=== PATIENT | male | born 1990 | race African-American/Black ===

== ENCOUNTER 2020-09-21 20:12 | Emergency (ER) | payer OTHER, SELFPAY ==
[2020-09-21 20:37] VITALS: BP 162/83; PULSE 82; RESP 18; TEMP 37.2; O2SAT 98; BMI 27.1
[2020-09-21 21:04] LABS: Strep A Nucleic Acid Negative (Negative)
--- NOTE | 2020-09-21 21:29 | ED.URI ---
HPI - URI/Sore Throat General Chief Complaint: Upper Respiratory Symptoms Stated Complaint: Sore throat Time Seen by Provider: 09/21/20 21:26 Source: patient Mode of arrival: ambulatory History of Present Illness HPI Narrative: 30-year-old male with presentation for itchy left ear and sore throat for 2 days without associated fever, chills, GI or symptoms and denies any cough. No COVID-19 vaccine. Patient states that he has a dog and is allergic to dogs. Related Data Allergies Allergy/AdvReac Type Severity Reaction Status Date / Time No Known Allergies Allergy Verified 09/21/20 20:40 Review of Systems Review of Systems: Pertinent positives and negatives as stated in HPI 10 point review of systems is otherwise negative. [facility] Past Medical History Source: nursing notes reviewed Medical History Patient denies medical problems Social History Social History Advance Directives: No Advance Directives Information Provided: No Physical Exam Vital Signs: Vital Signs: Last Vital Signs Temp 98.9 F 09/21/20 20:37 Pulse 82 09/21/20 20:37 Resp 18 09/21/20 20:37 BP 162/83 H 09/21/20 20:37 Pulse Ox 98 09/21/20 20:37 Body Mass Index 27.1 VITAL SIGNS: Reviewed. GENERAL: Well developed, well nourished, in no acute distress. HEAD: Normocephalic/atraumatic EYES: PERRLA, EOMI EARS: Ext canals without abnormality, TMs non-bulging and non-erythematous NOSE: Nares patent bilateral OROPHARYNX: no oral lesions noted, posterior pharynx clear and non-erythematous without noted tonsillar enlargement/erythema/exudates NECK: Supple, no adenopathy LUNGS: Normal breath sounds. No adventitious sounds or accessory muscle use. SpO2<98> CARDIOVASCULAR: Regular rate and rhythm without noted murmurs ABDOMEN: Soft, non-tender, non-distended with bowel sounds. SKIN: Inspection of the skin reveals no rashes NEUROLOGIC: Alert and oriented x 4. Course Course Course Narrative: 30-year-old male with history and clinical presentation most consistent with allergy symptoms but will swab for pharyngitis and COVID. Review of all investigations negative for acute findings. Patient discharged in stable condition. MDM - URI/Sore Throat Lab Data Labs: Lab Results 09/21/20 09/21/20 Range/Units 20:44 20:46 Coronavirus (PCR) NEGATIVE (Negative) Influenza Type A (PCR) NEGATIVE (Negative) Influenza Type B (PCR) NEGATIVE (Negative) RSV RNA Qual (PCR) NEGATIVE (Negative) S. pyogenes GrpA RODERICK Negative (Negative) Discharge Plan Discharge Clinical Impression: Allergies Patient Disposition: Home, Self-Care Instructions: Allergies (ED) Additional Instructions: Please follow-up with your primary care provider in the next 2-3 days for re-evaluation and further outpatient management. Recommend repeat COVID-19 testing in 3-4 days. Return to the ER for acute worsening of your symptoms. Referrals: Physician,Unknown [Primary Care Provider] - 2 days
[2020-09-21 21:37] LABS: Influenza A PCR NEGATIVE (Negative); Influenza B PCR NEGATIVE (Negative); Resp Syncy Virus RNA Qual PCR NEGATIVE (Negative); SARS COV2 PCR INHOUSE NEGATIVE (Negative)
== END 2020-09-21 22:35 | disposition home or self-care (01) ==
PROVIDERS: Emergency Provider Student in an Organized Health Care Education/Training Program
DX: T78.40XA Allergy, unspecified, initial encounter (principal); X58.XXXA Exposure to other specified factors, initial encounter; J02.9 Acute pharyngitis, unspecified; Z20.822 Contact with and (suspected) exposure to COVID-19
CPT/HCPCS: 0241U; 36415; 87651; 99282

== ENCOUNTER 2020-09-27 21:19 | Emergency (ER) | payer OTHER, SELFPAY ==
--- NOTE | ~2020-09-27 | XR_ITS ---
EXAMINATION: XR ABDOMEN KUB CLINICAL INDICATION: Abdominal pain. COMPARISON: None TECHNIQUE: AP view of the abdomen. FINDINGS: Significant fecal residual is noted throughout the entire large bowel, consistent with clinically suspected constipation. No evidence of any abnormal bowel distention. No abnormal soft tissue mass or calcification. Visualized lung bases are clear. XR/XR KUB IMPRESSION: Significant fecal residual throughout the entire large bowel, consistent with clinically suspected constipation. No superimposed bowel distention.
[2020-09-27 21:52] VITALS: BP 147/84; PULSE 63; RESP 16; TEMP 36.7; O2SAT 97; BMI 26.7
[2020-09-28 01:15] VITALS: BP 154/87; PULSE 67; RESP 16; TEMP 36.6; O2SAT 98
--- NOTE | 2020-09-28 01:27 | ED.ABDPAIN ---
HPI - Abdominal Pain General Chief Complaint: Abdominal Pain Stated Complaint: bloated Time Seen by Provider: 09/28/20 01:24 Source: patient Mode of arrival: ambulatory Limitations: no limitations History of Present Illness HPI narrative: Patient comes emergency room complaining of constipation. Patient states that the last time he moved his bowels was approximately 1 week ago. Patient taking in the musical and magnesium citrate at home. Patient complaining of bloating, no vomiting or diarrhea, patient able to pass gas. Patient states that he has been diagnosed with IBS in the past, consists mostly of constipation. Patient states that when he does not have bowel movements he becomes more anxious, which worsens his constipation. Related Data Previous Rx's Medication Instructions Recorded polyethylene glycol 3350 17 gram 17 g PO BID #30 ea 09/28/20 oral powder packet (Miralax) Allergies Allergy/AdvReac Type Severity Reaction Status Date / Time No Known Allergies Allergy Verified 09/21/20 20:40 Review of Systems Review of Systems Constitutional : No Weight loss, No Fever, No Chills, No Night Sweats, No Fatigue, No Malaise ENT/Mouth : No Hearing loss, No Ear Pain, No Nasal Congestion, No Sinus Pain, No Hoarseness, No sore throat, No Rhinorrhea, No Swallowing Difficulty Eyes: No Eye Pain, No Swelling, No Redness, No Foreign Body, No Discharge, No Vision Changes Cardiovascular : No Chest Pain, No SOB, No Dyspnea on Exertion, No Orthopnea, No Edema, No Palpitations Respiratory : No Cough, No Sputum, No Wheezing, No Smoke Exposure, No Dyspnea Gastrointestinal : No Nausea, No Vomiting, No Diarrhea, complaining of constipation, bloating Genitourinary : no irregular bleeding, No Dysuria, No Urinary Frequency, No Hematuria, No Urinary Incontinence, No Urgency, No Flank Pain, No Urinary Flow Changes, No Hesitancy Musculoskeletal : No joint pain, No Myalgias, No Joint Swelling Skin : No Skin Lesions, No rash Neuro : No Weakness, No Numbness, No Paresthesias, No Loss of Consciousness, No Dizziness, No Headache Psych : No Anxiety/Panic, No Depression, No SI/HI/AH/VH, No Social Issues, Heme/Lymph: No Bruising, No Bleeding,No Lymphadenopathy Endocrine : No Polyuria, No Polydipsia, No Temperature Intolerance Physical Exam Vital Signs: Vital Signs: Last Vital Signs Temp 97.8 F 09/28/20 01:15 Pulse 67 09/28/20 01:15 Resp 16 09/28/20 01:15 BP 154/87 H 09/28/20 01:15 Pulse Ox 98 09/28/20 01:15 Body Mass Index 26.7 Const: Other: Appearance: Alert. Oriented X3. No acute distress. Eyes: Pupils equal, round and reactive to light. ENT: Pharynx normal. Neck: Normal inspection. Neck supple. No lymph nodes noted. No crepitus CVS: Normal heart rate and rhythm. Pulses normal. Normal S1 and S2 Respiratory: No respiratory distress. Breath sounds normal. No Wheezing. No rales Abdomen: Soft and nontender. No rigidity. Mild distention. Skin: Skin warm and dry. Normal skin color. Normal skin turgor. Extremities: No lower extremity edema. No lower extremity edema. No Lacerations. No Rash Neuro: Oriented X 3. No motor deficit. No sensory deficit. Moving all extermities. No slurred speech. 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 Patient will also try MiraLax twice a day and drink plenty fluids. According to patient, he has not tried MiraLax yet. MDM - Abdominal Pain Lab Data Result diagrams: 09/28/20 01:25 09/28/20 01:25 Labs: Lab Results 09/28/20 09/28/20 Range/Units 01:25 01:25 WBC 8.7 (4.8-10.8) X10*3/uL RBC 5.40 (4.60-5.80) X10*6/uL Hgb 15.7 (14.0-18.0) g/dl Hct 43.8 (42-52) % MCV 81.1 (80-98) fL MCH 29.1 (27.0-33.0) pg MCHC 35.8 (31.0-36.0) g/dl RDW 13.0 (11.0-16.0) % Plt Count 266 (160-400) X10*3/uL MPV 9.5 (9.4-12.4) fL Immature Gran % (Auto) 0.2 (0.0-0.4) % Neut % (Auto) 44.2 L (45-73) % Lymph % (Auto) 42.8 H (20-40) % [place] % (Auto) 10.4 (2-11) % Eos % (Auto) 2.1 (0-4) % Baso % (Auto) 0.3 (0-2) % Lymph # (Auto) 3.7 (1.2-4.9) X10*3/uL [place] # (Auto) 0.9 (0.1-1.2) X10*3/uL Eos # (Auto) 0.2 (0.0-0.4) X10*3/uL Baso # (Auto) 0.0 (0.0-0.2) X10*3/uL Abs Immat Gran (auto) 0.02 (0.00-0.03) X10*3/uL Absolute Neuts (auto) 3.8 (2.0-8.3) X10*3/uL Absolute Nucleated RBC 0.000 (0.0-0.012) X10*3/uL Nucleated RBC % (auto) 0.0 (0.0-0.2) /100WBC Sodium 137 (135-145) mmol/L Potassium 4.3 (3.3-5.1) mmol/L Chloride 102 (96-108) mmol/L Carbon Dioxide 26 (22-29) mmol/L Anion Gap 13 (12-20) BUN 19 H (9-16) mg/dL Creatinine 1.31 (0.5-1.4) mg/dL Estim Creat Clear Calc 89.6 Estimated GFR > 60 Random Glucose 89 (60-115) mg/dL Calcium 9.7 (8.4-10.2) mg/dL Total Bilirubin 0.5 (0.0-1.0) mg/dL AST 25 (5-37) U/L ALT 33 (0-40) U/L Alkaline Phosphatase 62 (39-117) U/L Total Protein 7.7 (6.5-8.0) g/dL Albumin 4.4 (3.5-5.0) g/dL Imaging Data KUB: Radiologist's impression: Significant fecal residual is noted throughout the entire large bowel, consistent with clinically suspected constipation. No evidence of any abnormal bowel distention. No abnormal soft tissue mass or calcification. Visualized lung bases are clear. XR/XR KUB IMPRESSION: Significant fecal residual throughout the entire large bowel, consistent with clinically suspected constipation. No superimposed bowel distention. ? Discharge Plan Discharge Clinical Impression: Constipation Qualifiers: Constipation type: other constipation type Qualified Code(s): K59.09 - Other constipation Patient Disposition: Home, Self-Care Instructions: Constipation (ED) Additional Instructions: Please discuss with your primary care physician and Gastroenterology about the possibility of starting Linzess. Please follow-up with your primary care physician tomorrow. If you have any worsening or new symptoms, please return to the emergency room or call 911 Prescriptions: New polyethylene glycol 3350 [Miralax] 17 gram powder in packet 17 g PO BID Qty: 30 RF: 0 PMFSH Past Medical History Medical History IBS (irritable bowel syndrome) Social History Social History Advance Directives: No Advance Directives Information Provided: No
[2020-09-28 01:30] LABS: MANUAL DIFF FLAG NO
[2020-09-28 01:31] LABS: Basophils Percent Auto 0.3 % (0-2); Eosinophils Absolute Auto 0.2 X10*3/uL (0.0-0.4); Eosinophils Percent Auto 2.1 % (0-4); Hematocrit 43.8 % (42-52); Hemoglobin 15.7 g/dl (14.0-18.0); Imm Gran Abs Auto 0.02 X10*3/uL (0.00-0.03); Imm Gran Pct Auto 0.2 % (0.0-0.4); Lymphocytes Absolute Auto 3.7 X10*3/uL (1.2-4.9); Lymphocytes Percent Auto 42.8 % (20-40); Mean Corpuscular HGB Conc 35.8 g/dl (31.0-36.0); Mean Corpuscular Hemoglobin 29.1 pg (27.0-33.0); Mean Corpuscular Volume 81.1 fL (80-98); Mean Platelet Volume 9.5 fL (9.4-12.4); Monocytes Absolute Auto 0.9 X10*3/uL (0.1-1.2); Monocytes Percent Auto 10.4 % (2-11); Neutrophils Absolute Auto 3.8 X10*3/uL (2.0-8.3); Neutrophils Percent Auto 44.2 % (45-73); Platelet Count 266 X10*3/uL (160-400); White Blood Count 8.7 X10*3/uL (4.8-10.8)
[2020-09-28 02:01] LABS: Alanine Aminotransferase 33 U/L (0-40); Albumin Level 4.4 g/dL (3.5-5.0); Alkaline Phosphatase 62 U/L (39-117); Anion Gap 13 (12-20); Aspartate Amino Transferase 25 U/L (5-37); Bilirubin Total 0.5 mg/dL (0.0-1.0); Blood Urea Nitrogen 19 mg/dL (9-16); Calcium 9.7 mg/dL (8.4-10.2); Carbon Dioxide 26 mmol/L (22-29); Chloride 102 mmol/L (96-108); Creatinine Clr Calc Pharmacy 89.6; Estimated Glomerular Filt Rate > 60; Glucose Random 89 mg/dL (60-115); Potassium 4.3 mmol/L (3.3-5.1); Sodium 137 mmol/L (135-145); Total Protein 7.7 g/dL (6.5-8.0)
== END 2020-09-28 02:23 | disposition home or self-care (01) ==
PROVIDERS: Emergency Provider Emergency Medicine; PCP Urology
DX: K59.09 Other constipation (principal); R10.9 Unspecified abdominal pain; Z79.899 Other long term (current) drug therapy
CPT/HCPCS: 36415; 74018; 80053; 85025; 99284

== ENCOUNTER 2020-11-02 10:37 | Emergency (ER) | payer OTHER, SELFPAY ==
--- NOTE | ~2020-11-02 | US_ITS ---
EXAMINATION: US SCROTUM CLINICAL INFORMATION: Testicular discomfort. COMPARISON: None TECHNIQUE: A sonogram of the scrotum was performed assessing schmitz-scale appearance and color Doppler flow. Spectral Doppler analysis of the arterial and venous flow were performed in the testes bilaterally. FINDINGS: RIGHT: Right testicle measures 5.2 x 2.3 x 2.7 cm, volume 17 mL. No focal testicular parenchymal lesions are visualized. Spectral Doppler analysis of the arterial and venous flow is normal in the right testis. Right epididymal head is normal in size. There is a 2 mm right epididymal head cyst. No right hydrocele or varicocele is seen. Right epididymal Doppler flow is normal. LEFT: Left testicle measures 5 x 2.7 x 2.8 cm, volume 20 mL. No focal testicular parenchymal lesions are visualized. Spectral Doppler analysis of the arterial and venous flow is normal in the left testis. Left epididymal head is normal in size. No left hydrocele or varicocele is seen. Left epididymal Doppler flow is normal. US/US scrotum doppler IMPRESSION: Small right epididymal head cyst otherwise unremarkable exam.
--- NOTE | ~2020-11-02 | US_ITS ---
EXAMINATION: US SCROTUM CLINICAL INFORMATION: Testicular discomfort. COMPARISON: None TECHNIQUE: A sonogram of the scrotum was performed assessing schmitz-scale appearance and color Doppler flow. Spectral Doppler analysis of the arterial and venous flow were performed in the testes bilaterally. FINDINGS: RIGHT: Right testicle measures 5.2 x 2.3 x 2.7 cm, volume 17 mL. No focal testicular parenchymal lesions are visualized. Spectral Doppler analysis of the arterial and venous flow is normal in the right testis. Right epididymal head is normal in size. There is a 2 mm right epididymal head cyst. No right hydrocele or varicocele is seen. Right epididymal Doppler flow is normal. LEFT: Left testicle measures 5 x 2.7 x 2.8 cm, volume 20 mL. No focal testicular parenchymal lesions are visualized. Spectral Doppler analysis of the arterial and venous flow is normal in the left testis. Left epididymal head is normal in size. No left hydrocele or varicocele is seen. Left epididymal Doppler flow is normal. US/US scrotum IMPRESSION: Small right epididymal head cyst otherwise unremarkable exam.
[2020-11-02 11:35] VITALS: BP 145/84; PULSE 60; RESP 20; TEMP 36; O2SAT 99; BMI 27.1
--- NOTE | 2020-11-02 12:05 | ED_ITS ---
HPI - General Adult General Chief complaint: General Medical Stated complaint: lower abd pain Time Seen by Provider: 11/02/20 12:26 Source: patient Mode of arrival: ambulatory Limitations: no limitations History of Present Illness HPI narrative: Patient presents to ED cloudy urine for about 2 weeks. Patient states this Monday he came back negative for urinary tract infection and negative for STI. Patient states this morning he woke and thought he saw of green yellow liquid from penis. Patient states he has not had sex in the past 2 weeks. Patient denies any history of STIs. Patient states some mild testicular discomfort. Related Data Previous Rx's Medication Instructions Recorded polyethylene glycol 3350 17 gram 17 g PO BID #30 ea 09/28/20 oral powder packet (Miralax) Allergies Allergy/AdvReac Type Severity Reaction Status Date / Time No Known Allergies Allergy Verified 09/21/20 20:40 Review of Systems Review of Systems: Yes all other systems are reviewed and are negative Constitutional: Constitutional: Reports as per HPI and Reports no additional constitutional complaints Eyes: Eyes: Reports as per HPI and Reports no additional eye complaints ENT: Reports system reviewed and no additional complaints, except as documented and Reports as per HPI Cardiovascular: Cardiovascular: Reports as per HPI and Reports no additional cardiovascular complaints Respiratory: Respiratory: Reports as per HPI and Reports no additional respiratory complaints Gastrointestinal: Gastrointestinal: Reports as per HPI and Reports no additional gastrointestinal complaints Genitourinary: Genitourinary: Reports no additional male genitourinary complaints, Reports as per HPI and Reports testicular pain Comments: Cloudy urine Musculoskeletal: Musculoskeletal: Reports no additional musculoskeletal complaints and Reports as per HPI Neurologic: Reports system reviewed and no additional complaints, except as documented and Reports as per HPI Psychiatric: Psychiatric: Reports no additional psychiatric complaints and Reports as per HPI [facility] Past Medical History Medical History IBS (irritable bowel syndrome) Social History Social History Advance Directives: No Advance Directives Information Provided: No Physical Exam 2 Vital Signs: Vital Signs: Last Vital Signs Temp 98.1 F 11/02/20 13:20 Pulse 55 11/02/20 13:20 Resp 18 11/02/20 13:20 BP 132/69 11/02/20 13:20 Pulse Ox 98 11/02/20 13:20 Body Mass Index 27.1 Const: General: cooperative, healthy appearing, comfortable, no acute distress, well developed, alert and awake Orientation/consciousness: patient oriented x3 HENMT: Head: Yes normal to inspection, Yes No palpable skull fracture present, Yes normocephalic and Yes atraumatic Eyes: General: appearance normal, both eyes and all related structures Neck: Neck: Yes normal visual inspection, Yes full ROM, Yes no lymphadenopathy, Yes no meningeal signs, Yes trachea midline, Yes supple and No tender Chest: Chest palpation & inspection: normal inspection of the chest and normal palpation of entire chest wall Resp: Effort & Inspection: normal respiratory effort and able to speak in complete sentences Auscultation: clear to auscultation bilaterally Cardio: Jugular venous distension: no JVD Heart sounds: S1 normal heart sound present and S2 normal heart sound present GI: Inspection: Yes normal to inspection and No abdominal wall ecchymosis Palpation (GI): Soft to palpation, not firm, nontender, no guarding and not rigid : General: No CVA tenderness and Yes no CVA tenderness Male General Exam: No Genital lesions present Penis: normal penis, circumcised, no condylomata, no ecchymosis, not edematous, not erythematous, no masses, no nodules, no papules, no pustules, no vesicles, no swelling, no ulcerations and No Genital lesions present Meatus: meatus normal, no meatla discharge and No Blood at meatus present Scrotum: scrotum normal, no ecchymosis, not edematous, not erythematous, testes descended bilaterally, no hydroceles, no inguinal hernias, no masses and no scrotal swelling Testes: testicular tenderness (mild) Back/Spine/Pelvis: Back: no CVA tenderness, No CVA tenderness and No back tenderness Skin: General skin exam: no rashes or lesions noted and elasticity normal Neuro: General: patient oriented x3, gait normal, no meningeal signs and CN's II-XI intact bilaterally Cranial nerves: Yes CN's II-XII intact bilaterally Extrem: General: Yes normal to inspection and Yes full ROM Psych: Appearance: grossly normal, well kempt and not disheveled Course Course Course Narrative: UA and GC ordered. Patient of basic labs drawn and sent for testicle ultrasound. Reevaluation(s) Reevaluation #1: UA negative for any blood or any signs of infection. Testicular ultrasound negative for torsion or epididymitis. Testicular ultrasound shows epididymal cyst which patient states he is aware of. Patient kidney function is normal. Negative for signs of dehydration. CBC normal. no Indication for abdominal CT scan. Patient does not have any abdominal pain or flank pain. Patient came to the ED for cloudy urine and green discharge. Chlamydia gonorrhea is pending. Patient does not want empiric treatment. Patient states he was recently tested for STDs on Monday and they were negative. Patient will follow-up with primary care provider. Time: 15:06 Medical Decision Making MDM Narrative Medical decision making narrative: Cloudy urine. Testicular pain Lab Data Result diagrams: 11/02/20 13:06 11/02/20 13:06 Labs: Lab Results 11/02/20 11/02/20 11/02/20 Range/Units 13:06 13:06 13:06 WBC 4.5 L (4.8-10.8) X10*3/uL RBC 5.49 (4.60-5.80) X10*6/uL Hgb 16.0 (14.0-18.0) g/dl Hct 44.8 (42-52) % MCV 81.6 (80-98) fL MCH 29.1 (27.0-33.0) pg MCHC 35.7 (31.0-36.0) g/dl RDW 12.9 (11.0-16.0) % Plt Count 267 (160-400) X10*3/uL MPV 9.5 (9.4-12.4) fL Immature Gran % (Auto) 0.2 (0.0-0.4) % Neut % (Auto) 34.8 L (45-73) % Lymph % (Auto) 51.8 H (20-40) % [place] % (Auto) 10.3 (2-11) % Eos % (Auto) 2.5 (0-4) % Baso % (Auto) 0.4 (0-2) % Lymph # (Auto) 2.3 (1.2-4.9) X10*3/uL [place] # (Auto) 0.5 (0.1-1.2) X10*3/uL Eos # (Auto) 0.1 (0.0-0.4) X10*3/uL Baso # (Auto) 0.0 (0.0-0.2) X10*3/uL Abs Immat Gran (auto) 0.01 (0.00-0.03) X10*3/uL Absolute Neuts (auto) 1.6 L (2.0-8.3) X10*3/uL Absolute Nucleated RBC 0.000 (0.0-0.012) X10*3/uL Nucleated RBC % (auto) 0.0 (0.0-0.2) /100WBC Sodium (135-145) mmol/L Potassium (3.3-5.1) mmol/L Chloride (96-108) mmol/L Carbon Dioxide (22-29) mmol/L Anion Gap (12-20) BUN (9-16) mg/dL Creatinine (0.5-1.4) mg/dL Estim Creat Clear Calc Estimated GFR Random Glucose (60-115) mg/dL Calcium (8.4-10.2) mg/dL Urine Color STRAW Urine Appearance CLEAR Urine pH 5.5 (5.0-8.0) Ur Specific [place] <= 1.005 (1.005-1.025) Urine Protein NEG (NEG-TRACE) MG/DL Urine Glucose (UA) NEG (NEG) MG/DL Urine Ketones NEG (NEG) MG/DL Urine Blood NEG (NEG) Urine Nitrite NEG (NEG) Ur Leukocyte Esterase NEG (NEG) Urine RBC 0 (0) /HPF Urine WBC 0-2 (0-4) /HPF Ur Squamous Epith Cells TRACE /LPF Urine Bacteria NONE /LPF Chlam trachomat DNA PCR NOT DETECTED (Not Detect.) N.gonorrhoeae DNA (PCR) NOT DETECTED (Not Detect.) 11/02/20 Range/Units 13:06 WBC (4.8-10.8) X10*3/uL RBC (4.60-5.80) X10*6/uL Hgb (14.0-18.0) g/dl Hct (42-52) % MCV (80-98) fL MCH (27.0-33.0) pg MCHC (31.0-36.0) g/dl RDW (11.0-16.0) % Plt Count (160-400) X10*3/uL MPV (9.4-12.4) fL Immature Gran % (Auto) (0.0-0.4) % Neut % (Auto) (45-73) % Lymph % (Auto) (20-40) % [place] % (Auto) (2-11) % Eos % (Auto) (0-4) % Baso % (Auto) (0-2) % Lymph # (Auto) (1.2-4.9) X10*3/uL [place] # (Auto) (0.1-1.2) X10*3/uL Eos # (Auto) (0.0-0.4) X10*3/uL Baso # (Auto) (0.0-0.2) X10*3/uL Abs Immat Gran (auto) (0.00-0.03) X10*3/uL Absolute Neuts (auto) (2.0-8.3) X10*3/uL Absolute Nucleated RBC (0.0-0.012) X10*3/uL Nucleated RBC % (auto) (0.0-0.2) /100WBC Sodium 135 (135-145) mmol/L Potassium 5.1 (3.3-5.1) mmol/L Chloride 103 (96-108) mmol/L Carbon Dioxide 23 (22-29) mmol/L Anion Gap 14 (12-20) BUN 9 D (9-16) mg/dL Creatinine 1.23 (0.5-1.4) mg/dL Estim Creat Clear Calc 95.5 Estimated GFR > 60 Random Glucose 87 (60-115) mg/dL Calcium 9.8 (8.4-10.2) mg/dL Urine Color Urine Appearance Urine pH (5.0-8.0) Ur Specific [place] (1.005-1.025) Urine Protein (NEG-TRACE) MG/DL Urine Glucose (UA) (NEG) MG/DL Urine Ketones (NEG) MG/DL Urine Blood (NEG) Urine Nitrite (NEG) Ur Leukocyte Esterase (NEG) Urine RBC (0) /HPF Urine WBC (0-4) /HPF Ur Squamous Epith Cells /LPF Urine Bacteria /LPF Chlam trachomat DNA PCR (Not Detect.) N.gonorrhoeae DNA (PCR) (Not Detect.) Discharge Plan Discharge Clinical Impression: Pain in testicle Patient Disposition: Home, Self-Care Instructions: Testicle Pain (ED) Additional Instructions: Your urine came back negative for infection. Your blood work came back normal. Ultrasound of testicles came back negative for any testicular torsion, variceal, hydrocele, or epididymitis. Please follow-up with primary care provider. Return to ED for any abdominal pain, nausea, vomiting, swelling of testicles, penile lesions, flank pain, or any other concerning symptoms. Prescriptions: No Action polyethylene glycol 3350 [Miralax] 17 gram powder in packet 17 g PO BID Qty: 30 RF: 0 Referrals: Edmond Plummer MD [Primary Care Provider] - 2 days (Testicular pain. cloudy urine) Discharge Date/Time: 11/02/20 15:17 Print Language: Estonian
--- NOTE | 2020-11-02 12:54 | PC.NURSE ---
patient arrives to ED with c/o testicular pain. A+ox4. Resting safely.
[2020-11-02 13:14] LABS: MANUAL DIFF FLAG NO
[2020-11-02 13:18] LABS: Appearance Urine CLEAR; Basophils Percent Auto 0.4 % (0-2); Color Urine STRAW; Eosinophils Absolute Auto 0.1 X10*3/uL (0.0-0.4); Eosinophils Percent Auto 2.5 % (0-4); Glucose Urine UA NEG (NEG); Hematocrit 44.8 % (42-52); Imm Gran Abs Auto 0.01 X10*3/uL (0.00-0.03); Imm Gran Pct Auto 0.2 % (0.0-0.4); Leukocyte Esterase Urine NEG (NEG); Lymphocytes Absolute Auto 2.3 X10*3/uL (1.2-4.9); Lymphocytes Percent Auto 51.8 % (20-40); Mean Corpuscular HGB Conc 35.7 g/dl (31.0-36.0); Mean Corpuscular Hemoglobin 29.1 pg (27.0-33.0); Mean Corpuscular Volume 81.6 fL (80-98); Mean Platelet Volume 9.5 fL (9.4-12.4); Monocytes Absolute Auto 0.5 X10*3/uL (0.1-1.2); Monocytes Percent Auto 10.3 % (2-11); Neutrophils Absolute Auto 1.6 X10*3/uL (2.0-8.3); Neutrophils Percent Auto 34.8 % (45-73); Nitrite Urine NEG (NEG); PH 5.5 (5.0-8.0); Platelet Count 267 X10*3/uL (160-400); Red Blood Count 5.49 X10*6/uL (4.60-5.80); Red Cell Distribution Width 12.9 % (11.0-16.0); Specific Gravity - Urine <= 1.005 (1.005-1.025); Urine Blood NEG (NEG); Urine Ketones NEG (NEG); Urine Protein NEG (NEG-TRACE); White Blood Count 4.5 X10*3/uL (4.8-10.8)
[2020-11-02 13:20] VITALS: BP 132/69; PULSE 55; RESP 18; TEMP 36.7; O2SAT 98
[2020-11-02 13:37] LABS: Anion Gap 14 (12-20); Blood Urea Nitrogen 9 mg/dL (9-16); Calcium 9.8 mg/dL (8.4-10.2); Carbon Dioxide 23 mmol/L (22-29); Chloride 103 mmol/L (96-108); Creatinine Clr Calc Pharmacy 95.5; Estimated Glomerular Filt Rate > 60; Glucose Random 87 mg/dL (60-115); Potassium 5.1 mmol/L (3.3-5.1); Sodium 135 mmol/L (135-145)
[2020-11-02 14:27] LABS: RBC Urine 0 /HPF (0); Squamous Epithelial Cell Urine TRACE /LPF; WBC Urine 0-2 /HPF (0-4)
[2020-11-02 14:58] LABS: CT PCR NOT DETECTED (Not Detect.); NG PCR NOT DETECTED (Not Detect.)
== END 2020-11-02 15:17 | disposition home or self-care (01) ==
PROVIDERS: Physician Assistant; Emergency Provider Emergency Medicine; PCP Urology
DX: N50.812 Left testicular pain (principal); N50.811 Right testicular pain; R10.30 Lower abdominal pain, unspecified; Z79.899 Other long term (current) drug therapy
CPT/HCPCS: 36415; 76870; 80048; 81001; 85025; 87491; 87591; 93975; 99283; 99284

== ENCOUNTER 2020-11-21 08:40 | Emergency (ER) | payer OTHER, SELFPAY ==
[2020-11-21 08:59] VITALS: BP 140/79; PULSE 77; RESP 18; TEMP 36.7; O2SAT 98; BMI 26.8
[2020-11-21 09:41] LABS: COVID-19 Test Negative (Negative)
--- NOTE | 2020-11-21 10:06 | ED.GENADULT ---
HPI - General Adult General Chief complaint: General Medical Stated complaint: CONGESTION Time Seen by Provider: 11/21/20 09:11 Source: patient Mode of arrival: ambulatory History of Present Illness HPI narrative: 30-year-old male with a past medical history of IBS, seasonal allergies, presenting to the ED complaining of worsening congestion and head pressure x weeks. Reports associated ear pressure, dry/scratchy throat and rhinorrhea. Denies fever, chills, cough, SOB, CP, sick contacts, recent travel, known COVID-19 exposure. Has been taking Flonase/Allergy Relief medications without symptomatic improvement Onset (ago): week(s) Related Data Previous Rx's Medication Instructions Recorded polyethylene glycol 3350 17 gram 17 g PO BID #30 ea 09/28/20 oral powder packet (Miralax) azithromycin 250 mg tablet See Rx Instructions .ROUTE 11/21/20 .COMPLEX #6 tab Allergies Allergy/AdvReac Type Severity Reaction Status Date / Time dog dander [dogs] Allergy Runny Nose Verified 11/21/20 09:02 Review of Systems Review of Systems: Constitutional: No Fever, No Chills ENT/Mouth: + Ear Pain, + Nasal Congestion, + Sinus Pain, No Hoarseness, + sore throat, + Rhinorrhea, No Swallowing Difficulty Cardiovascular: No Chest Pain, No SOB Respiratory: No Cough, No Sputum, No Wheezing Gastrointestinal: No Nausea, No Abdominal pain Genitourinary: No Dysuria, No Urinary Frequency Musculoskeletal: No joint pain, No Myalgias, No Joint Swelling Skin: No Skin Lesions, No rash Neuro: No Weakness Yes all other systems are reviewed and are negative [facility] Past Medical History Attestation statement: The following information was validated with the patient. Medical History IBS (irritable bowel syndrome) Social History Social History Advance Directives: Yes Advance Directives Information Provided: No Advance Directives on File: No Physical Exam Vital Signs: Vital Signs: Last Vital Signs Temp 98.1 F 11/21/20 08:59 Pulse 77 11/21/20 08:59 Resp 18 11/21/20 08:59 BP 140/79 H 11/21/20 08:59 Pulse Ox 98 11/21/20 08:59 Body Mass Index 26.8 Const: General: cooperative, healthy appearing, no acute distress, well developed, alert and awake Orientation/consciousness: patient oriented x3 Limitations: no limitations HENMT: Head: Yes normal to inspection and Yes atraumatic Ears: hearing grossly normal bilaterally, external ears normal, mastoids normal and TM abnormal bulging on the left; Negative for not with effusion, not erythematous and with no fluid behind the TM General nose exam: Normal external nose present and Nasal discharge present Face and sinus: Yes normal facial exam and Yes sinus tenderness (Maxillary) Mouth: Normal oral and palatal mucosa present Throat: Yes posterior oropharynx normal, Yes tonsils normal, Yes uvula midline, No peritonsillar mass, No uvula laterally displaced and No uvular edema Eyes: General: appearance normal, both eyes and all related structures EOM: EOMs intact bilaterally Neck: Neck: Yes normal visual inspection, Yes no lymphadenopathy and Yes no meningeal signs Resp: Effort & Inspection: normal respiratory effort Auscultation: clear to auscultation bilaterally, no rales, no rhonchi and no wheezes Cardio: Rate: regular rate Heart sounds: S1 normal heart sound present and S2 normal heart sound present Skin: Rashes: no rashes Wounds: no wounds Neuro: General: patient oriented x3 and no meningeal signs Gait exam (Neuro): Normal gait present Extrem: General: Yes normal to inspection Course Reevaluation(s) Reevaluation #1: COVID-19 negative Time: 10:00 Medical Decision Making [facility] Narrative Medical decision making narrative: 30-year-old male with a past medical history of IBS, seasonal allergies, presenting to the ED complaining of worsening congestion and head pressure x weeks. On exam VS, NAD, concern for sinusitis versus viral syndrome/COVID-19 for lower concern for pneumonia. Plan: COVID-19 testing. Will treat with antibiotics for sinusitis secondary to continued symptoms despite OTC remedies and patient request Lab Data Labs: Lab Results 11/21/20 Range/Units 09:20 COVID-19 (FABIOLA) Negative (Negative) COVID-19 Clin Com See Note Discharge Plan Discharge Clinical Impression: Sinusitis Qualifiers: Sinusitis location: maxillary Chronicity: acute Recurrence: not specified as recurrent Qualified Code(s): J01.00 - Acute maxillary sinusitis, unspecified Patient Disposition: Home, Self-Care Instructions: Sinusitis (ED) Additional Instructions: Continue to use Flonase and allergy relief medications at home In addition azithromycin is an antibiotic for sinusitis Also consider using Neti pot and saline rinses [id number] Take Tylenol Motrin as needed Follow-up with her doctor You tested negative for COVID-19 Prescriptions: New azithromycin 250 mg tablet See Rx Instructions .ROUTE .COMPLEX Qty: 6 RF: 0 No Action polyethylene glycol 3350 [Miralax] 17 gram powder in packet 17 g PO BID Qty: 30 RF: 0
== END 2020-11-21 10:22 | disposition home or self-care (01) ==
PROVIDERS: Physician Assistant; Emergency Provider Emergency Medicine; PCP Urology
DX: J01.00 Acute maxillary sinusitis, unspecified (principal); Z20.822 Contact with and (suspected) exposure to COVID-19
CPT/HCPCS: 36415; 87635; 99283

== ENCOUNTER 2021-01-27 12:06 | Outpatient (REF) | payer OTHER, SELFPAY | END 2021-01-27 12:07 | disposition home or self-care (01) | LOC: HO.LAB 12:06 | PROVIDERS: Visit Provider Internal Medicine | DX: Z13.89 Encounter for screening for other disorder (principal) ==

== ENCOUNTER 2021-02-12 10:28 | Emergency (ER) | payer OTHER, SELFPAY ==
--- NOTE | ~2021-02-12 | XR_ITS ---
EXAMINATION: XR CHEST CLINICAL INFORMATION: Cough. COMPARISON: None TECHNIQUE: 2 views of the chest were obtained. FINDINGS: No significant abnormality is noted involving the heart, lungs, mediastinum, bony thorax or soft tissues. A 0.6 cm low-density nodule projecting over the anterior segment of the right 6th rib somewhat laterally is felt to represent a nipple shadow. XR/XR chest 2V IMPRESSION: No radiographic evidence of pneumonia. No acute pulmonary process.
[2021-02-12 10:56] VITALS: BP 136/90; PULSE 71; RESP 18; TEMP 36.9; O2SAT 99; BMI 26.7
--- NOTE | 2021-02-12 17:21 | ECG_ITS ---
Test Reason : burning in chest Blood Pressure : / mmHG Vent. Rate : 063 BPM Atrial Rate : 063 BPM P-R Int : 140 ms QRS Dur : 072 ms QT Int : 384 ms P-R-T Axes : 000 057 037 degrees QTc Int : 392 ms Normal sinus rhythm Normal ECG No previous ECGs available Referred By: Buzz Coon Electronically Signed By:YOUNG ABRAHAM MD
--- NOTE | 2021-02-12 17:59 | ED_ITS ---
HPI - General Adult General Chief complaint: Upper Respiratory Symptoms <JOSETTE Pina Last Filed: 02/12/21 18:53> Stated complaint: burning sensation in chest +COVID 02/08/21 <JOSETTE Pina Last Filed: 02/12/21 18:53> Time Seen by Provider: 02/12/21 16:11 <JOSETTE Pina Last Filed: 02/12/21 18:53> History of Present Illness HPI narrative: Patient who is COVID positive complains of mild coughing runny nose some body aches and sometimes when he wakes up in the morning he has a burning sensation in his upper abdomen and chest which is not related to exertion, no accompanying shortness of breath no diaphoresis no dizziness no fainting no f eeling faint no nausea or vomiting The pain is similar to prior episodes of GERD <JOSETTE Pina Last Filed: 02/12/21 18:53> Related Data Home medications: Previous Rx's Medication Instructions Recorded polyethylene glycol 3350 17 gram 17 g PO BID #30 ea 09/28/20 oral powder packet (Miralax) azithromycin 250 mg tablet See Rx Instructions .ROUTE 11/21/20 .COMPLEX #6 tab <JOSETTE Pina Last Filed: 02/12/21 18:53> Allergies/adverse reactions: Allergies Allergy/AdvReac Type Severity Reaction Status Date / Time dog dander [dogs] Allergy Runny Nose Verified 02/12/21 10:56 <JOSETTE Pina Last Filed: 02/12/21 18:53> Review of Systems Review of Systems: Positive for runny nose cough and intermittent burning in his chest and upper abdomen some mornings, no pain or burning now Negatives are no fever no chills no dizziness no weakness no fainting no feeling faint no headache no neck pain no radiation of pain no chest pain no diaphoresis no exertional symptoms no other abdominal pain no nausea vomiting or diarrhea no calf pain or swelling no leg swelling <JOSETTE Pina Last Filed: 02/12/21 18:53> Yes all other systems are reviewed and are negative <JOSETTE Pina Last Filed: 02/12/21 18:53> [facility] Past Medical History Source: nursing notes reviewed <JOSETTE Pina Last Filed: 02/12/21 18:53> Medical History: Medical History IBS (irritable bowel syndrome) <JOSETTE Pina - Last Filed: 02/12/21 18:53> Social History Social History: Social History Advance Directives: No Advance Directives Information Provided: No <JOSETTE Pina - Last Filed: 02/12/21 18:53> Physical Exam Vital Signs: Vital Signs: Last Vital Signs Temp 98.4 F 02/12/21 10:56 Pulse 71 02/12/21 10:56 Resp 18 02/12/21 10:56 BP 136/90 H 02/12/21 10:56 Pulse Ox 99 02/12/21 10:56 BMI result Body Mass Index 26.7 <JOSETTE Pina - Last Filed: 02/12/21 18:53> Vital Signs: Last Vital Signs Temp 98.4 F 02/12/21 10:56 Pulse 71 02/12/21 10:56 Resp 18 02/12/21 10:56 BP 136/90 H 02/12/21 10:56 Pulse Ox 99 02/12/21 10:56 BMI result Body Mass Index 26.7 <JOSETTE Cabrales - Last Filed: 02/12/21 20:07> Comfortable ear lacks no acute distress The eyes no redness or discharge The neck is supple The chest is clear to auscultation bilateral Heart no murmur there is no chest wall tenderness there is no pleuritic d iscomfort The abdomen is soft and nontender The heart no murmurs Extremities full range of motion x4 without edema no calf tenderness or swelling <JOSETTE Pina - Last Filed: 02/12/21 18:53> Course Course Course Narrative: EKG was a normal sinus rhythm rate 63, in leads V3 V4 and V5 there was a questionable ST elevation versus early repolarization, there was also borderline high T-waves EKG was repeated and showed the same so as there are no priors for comparison labs including a troponin were ordered for the patient will had 2 episodes of chest burning in the morning on rising over the last 2 days but no other chest pain no shortness of breath Patient is positive for COVID At 19:00 the case was signed out to physician facilities maintenance assistant amber to follow labs and if normal discharge patient with diagnosis of COVID <JOSETTE Pina - Last Filed: 02/12/21 18:53> Reevaluation(s) Reevaluation #1: Troponin negative. Potassium WNL, labs otherwise unremarkable. Results discussed with patient including worrisome signs and symptoms and strict return precautions need to follow-up with PCP. He verbalized understanding feel safe for discharge home at this time <JOSETTE Cabrales - Last Filed: 02/12/21 20:07> Time: 20:05 <JOSETTE Cabrales - Last Filed: 02/12/21 20:07> Medical Decision Making Lab Data Result diagrams: : 02/12/21 19:29 02/12/21 19:29 <JOSETTE Pina - Last Filed: 02/12/21 18:53> Labs: Lab Results 02/12/21 02/12/21 02/12/21 Range/Units 19:29 19:29 19:29 WBC 4.8 (4.8-10.8) X10*3/uL RBC 5.42 (4.60-5.80) X10*6/uL Hgb 15.6 (14.0-18.0) g/dl Hct 43.9 (42.0-52.0) % MCV 81.0 (80.0-98.0) fL MCH 28.8 (27.0-33.0) pg MCHC 35.5 (31.0-36.0) g/dl RDW 13.6 (11.0-16.0) % Plt Count 238 (160-400) X10*3/uL MPV 9.9 (9.4-12.4) fL Immature Gran % (Auto) 0.2 (0.0-0.4) % Neut % (Auto) 42.2 L (45-73) % Lymph % (Auto) 47.7 H (20-40) % Moore % (Auto) 8.5 (2-11) % Eos % (Auto) 1.0 (0-4) % Baso % (Auto) 0.4 (0-2) % Lymph # (Auto) 2.3 (1.2-4.9) X10*3/uL Moore # (Auto) 0.4 (0.1-1.2) X10*3/uL Eos # (Auto) 0.1 (0.0-0.4) X10*3/uL Baso # (Auto) 0.0 (0.0-0.2) X10*3/uL Abs Immat Gran (auto) 0.01 (0.00-0.03) X10*3/uL Absolute Neuts (auto) 2.0 (2.0-8.3) x10*3/uL Absolute Nucleated RBC 0.000 (0.0-0.012) X10*3/uL Nucleated RBC % (auto) 0.0 (0.0-0.2) /100WBC Sodium 139 (135-145) mmol/L Potassium 4.0 D (3.3-5.1) mmol/L Chloride 102 (96-108) mmol/L Carbon Dioxide 30 H (22-29) mmol/L Anion Gap 11 L (12-20) BUN 7 L (9-16) mg/dL Creatinine 0.96 (0.5-1.4) mg/dL Estim Creat Clear Calc 121.2 Estimated GFR > 60 Random Glucose 84 (60-115) mg/dL Calcium 9.5 (8.4-10.2) mg/dL Troponin I High Sens < 3.5 (<3.5-35.0) ng/L <JOSETTE Pina - Last Filed: 02/12/21 18:53> Lab Results 02/12/21 02/12/21 02/12/21 Range/Units 19:29 19:29 19:29 WBC 4.8 (4.8-10.8) X10*3/uL RBC 5.42 (4.60-5.80) X10*6/uL Hgb 15.6 (14.0-18.0) g/dl Hct 43.9 (42.0-52.0) % MCV 81.0 (80.0-98.0) fL MCH 28.8 (27.0-33.0) pg MCHC 35.5 (31.0-36.0) g/dl RDW 13.6 (11.0-16.0) % Plt Count 238 (160-400) X10*3/uL MPV 9.9 (9.4-12.4) fL Immature Gran % (Auto) 0.2 (0.0-0.4) % Neut % (Auto) 42.2 L (45-73) % Lymph % (Auto) 47.7 H (20-40) % Moore % (Auto) 8.5 (2-11) % Eos % (Auto) 1.0 (0-4) % Baso % (Auto) 0.4 (0-2) % Lymph # (Auto) 2.3 (1.2-4.9) X10*3/uL Moore # (Auto) 0.4 (0.1-1.2) X10*3/uL Eos # (Auto) 0.1 (0.0-0.4) X10*3/uL Baso # (Auto) 0.0 (0.0-0.2) X10*3/uL Abs Immat Gran (auto) 0.01 (0.00-0.03) X10*3/uL Absolute Neuts (auto) 2.0 (2.0-8.3) x10*3/uL Absolute Nucleated RBC 0.000 (0.0-0.012) X10*3/uL Nucleated RBC % (auto) 0.0 (0.0-0.2) /100WBC Sodium 139 (135-145) mmol/L Potassium 4.0 D (3.3-5.1) mmol/L Chloride 102 (96-108) mmol/L Carbon Dioxide 30 H (22-29) mmol/L Anion Gap 11 L (12-20) BUN 7 L (9-16) mg/dL Creatinine 0.96 (0.5-1.4) mg/dL Estim Creat Clear Calc 121.2 Estimated GFR > 60 Random Glucose 84 (60-115) mg/dL Calcium 9.5 (8.4-10.2) mg/dL Troponin I High Sens < 3.5 (<3.5-35.0) ng/L <JOSETTE Cabrales - Last Filed: 02/12/21 20:07> Discharge Plan Discharge Clinical Impression: COVID-19 <JOSETTE Pina - Last Filed: 02/12/21 18:53> Patient Disposition: Home, Self-Care <JOSETTE Pina - Last Filed: 02/12/21 18:53> Instructions: COVID-19 (Coronavirus Disease 2019) (ED) <JOSETTE Pina - Last Filed: 02/12/21 18:53> Additional Instructions: You have COVID COVID can cause various kinds of chest discomfort, we do not think it is anything dangerous today we told the gets a blood clot or heart attack or pneumonia Return any time if worse difficulty breathing any worse condition or any concerns At this time you will be okay for discharge. Please self isolate for 10-14 days from COVID-19 diagnosis. Do not expose yourself to others. You may not go to work or school. Please continue to follow cold instructions and wash your hands frequently. You may take Tylenol / Motrin as directed on the bottle for pain or fever. If you have constant or persistent shortness of breath, fever unresolved with medications, chest pain, or your unable to eat or drink please return to the ED CDC Guidelines for home isolation: - Stay away from others - WEAR A MASK if you are sick AND STAY HOME - Cover your mouth and nose with a tissue when you cough or sneeze. Dispose of tissues in a lined trash can and wash your hands immediately with soap and water for at least 20 seconds. If soap and water are not available, clean hands with alcohol-based hand metal fence erector that contains at least 60% alcohol. - Clean your hands often with soap and water for at least 20 seconds - Avoid touching your eyes, nose and mouth with unwashed hands - Do not share dishes, drinking glasses, cups, eating utensils, towels, or bedding with other people in your home. After using these items, wash them thoroughly with soap and water or put in the open shank coverer. - Clean high-touch surfaces in your isolation area ( sick room and bathroom) every day; let a caregiver clean and disinfect high-touch surfaces in other areas of the home. Clean the area or item with soap and water or another detergent if it is dirty. Then, use a household disinfectant. - Limit contact with pets and animals: If you must care for a pet, wash your hands before and after interacting with them) <JOSETTE Pina - Last Filed: 02/12/21 18:53> Prescriptions: No Action polyethylene glycol 3350 [Miralax] 17 gram powder in packet 17 g PO BID Qty: 30 RF: 0 azithromycin 250 mg tablet See Rx Instructions .ROUTE .COMPLEX Qty: 6 RF: 0 <JOSETTE Pina - Last Filed: 02/12/21 18:53> Referrals: Physician,Unknown J [Primary Care Provider] - 2 days <JOSETTE Pina - Last Filed: 02/12/21 18:53>
--- NOTE | 2021-02-12 18:06 | ECG_ITS ---
Test Reason : REPEAT EKG Blood Pressure : / mmHG Vent. Rate : 056 BPM Atrial Rate : 056 BPM P-R Int : 138 ms QRS Dur : 074 ms QT Int : 386 ms P-R-T Axes : -17 051 028 degrees QTc Int : 372 ms Sinus bradycardia Otherwise normal ECG When compared with ECG of 12-FEB-2021 17:42, No significant change was found Referred By: Buzz Coon Electronically Signed By:YOUNG ABRAHAM MD
[2021-02-12 19:33] LABS: MANUAL DIFF FLAG NO
[2021-02-12 19:37] LABS: Basophils Percent Auto 0.4 % (0-2); Eosinophils Absolute Auto 0.1 X10*3/uL (0.0-0.4); Hematocrit 43.9 % (42.0-52.0); Hemoglobin 15.6 g/dl (14.0-18.0); Imm Gran Abs Auto 0.01 X10*3/uL (0.00-0.03); Imm Gran Pct Auto 0.2 % (0.0-0.4); Lymphocytes Absolute Auto 2.3 X10*3/uL (1.2-4.9); Lymphocytes Percent Auto 47.7 % (20-40); Mean Corpuscular HGB Conc 35.5 g/dl (31.0-36.0); Mean Corpuscular Hemoglobin 28.8 pg (27.0-33.0); Mean Platelet Volume 9.9 fL (9.4-12.4); Monocytes Absolute Auto 0.4 X10*3/uL (0.1-1.2); Monocytes Percent Auto 8.5 % (2-11); Neutrophils Percent Auto 42.2 % (45-73); Platelet Count 238 X10*3/uL (160-400); Red Blood Count 5.42 X10*6/uL (4.60-5.80); Red Cell Distribution Width 13.6 % (11.0-16.0); White Blood Count 4.8 X10*3/uL (4.8-10.8)
[2021-02-12 19:55] LABS: Troponin-I High Sensitivity < 3.5 ng/L (<3.5-35.0)
[2021-02-12 19:57] LABS: Anion Gap 11 (12-20); Blood Urea Nitrogen 7 mg/dL (9-16); Calcium 9.5 mg/dL (8.4-10.2); Carbon Dioxide 30 mmol/L (22-29); Chloride 102 mmol/L (96-108); Creatinine Clr Calc Pharmacy 121.2; Estimated Glomerular Filt Rate > 60; Glucose Random 84 mg/dL (60-115); Sodium 139 mmol/L (135-145)
[2021-02-12 20:42] VITALS: BP 122/84; PULSE 70; RESP 16; TEMP 36.9; O2SAT 98
== END 2021-02-12 20:44 | disposition home or self-care (01) ==
PROVIDERS: Physician Assistant Medical; Emergency Provider Emergency Medicine
DX: U07.1 COVID-19 (principal); R05.9 Cough, unspecified; M79.81 Nontraumatic hematoma of soft tissue; Z79.899 Other long term (current) drug therapy
CPT/HCPCS: 36415; 71046; 80048; 84484; 85025; 93005; 99283; 99284

== ENCOUNTER 2021-07-28 17:51 | Emergency (ER) | payer OTHER, SELFPAY ==
[2021-07-28 18:04] VITALS: BP 135/81; PULSE 76; RESP 20; TEMP 36.6; O2SAT 98; BMI 28.0
[2021-07-28 19:47] LABS: Appearance Urine CLEAR; Color Urine YELLOW; Glucose Urine UA NEG (NEG); Leukocyte Esterase Urine NEG (NEG); Nitrite Urine NEG (NEG); Urine Blood NEG (NEG); Urine Ketones NEG (NEG); Urine Protein NEG (NEG-TRACE)
--- NOTE | 2021-07-28 19:58 | ED.MALEGU ---
HPI - Male Genitourinary General Chief complaint: Urogenital-Male Stated complaint: pain in penis area Time Seen by Provider: 07/28/21 18:58 Source: patient Mode of arrival: ambulatory History of Present Illness HPI Narrative: 31-year-old male with past medical history of IBS presenting to the ED complaining of seeing blood come from penis s/p ejaculation last night x1. Denies blood being mixed in ejaculation, trauma/injury, pain, lesions, active bleeding, hematuria, dysuria, flank pain, scrotal/penile pain or swelling, discharge. Denies concern for STI, admits was tested for STIs last month and negative as well as saw urologist with negative ultrasound/workup Onset (ago): day(s) Duration: now resolved Related Data Previous Rx's Medication Instructions Recorded polyethylene glycol 3350 17 gram 17 g PO BID #30 ea 09/28/20 oral powder packet (Miralax) azithromycin 250 mg tablet See Rx Instructions PO .COMPLEX #6 11/21/20 tabs emtricitabine 200 mg-tenofovir 1 tab PO DAILY #30 tabs 07/28/21 disoproxil fumarate 300 mg tablet (Truvada) raltegravir 400 mg tablet 400 mg PO BID 30 days #60 tabs 07/28/21 Allergies Allergy/AdvReac Type Severity Reaction Status Date / Time dog dander [dogs] Allergy Runny Nose Verified 02/12/21 10:56 Review of Systems Review of Systems: Constitutional: No Fever, No Chills, No Fatigue, No Malaise ENT/Mouth: No Hearing loss, No Ear Pain, No sore throat, No Rhinorrhea, No Swallowing Difficulty Eyes: No Eye Pain, No Swelling, No Redness Cardiovascular: No Chest Pain, No SOB Respiratory: No Cough, No Sputum, No Dyspnea Gastrointestinal: No Nausea, No Vomiting, No Diarrhea, No Constipation, No Abdominal pain, Genitourinary: + irregular bleeding, No penile discharge, No Dysuria, No Urinary Frequency, No Hematuria, No Urinary Incontinence/retention, No Urgency, No Flank Pain, No Urinary Flow Changes, No Hesitancy Musculoskeletal: No joint pain, No Myalgias, No Joint Swelling Skin: No Skin Lesions, No rash Neuro: No Weakness, No Dizziness, No Headache Yes all other systems are reviewed and are negative PMFSH Past Medical History Attestation statement: The following information was validated with the patient. Medical History IBS (irritable bowel syndrome) Social History Social History Advance Directives: No Advance Directives Information Provided: No Physical Exam Vital Signs: Vital Signs: Last Vital Signs Temp 97.9 F 07/28/21 18:04 Pulse 76 07/28/21 18:04 Resp 20 07/28/21 18:04 BP 135/81 07/28/21 18:04 Pulse Ox 98 07/28/21 18:04 O2 Del Method 07/28/21 18:04 BMI result Body Mass Index 28.0 Const: General: cooperative, healthy appearing and no acute distress Orientation/consciousness: patient oriented x3 Limitations: no limitations HEENT: Head: Yes normal to inspection and Yes atraumatic Ears: hearing grossly normal bilaterally General nose exam: Normal external nose present Face and sinus: Yes normal facial exam Eyes: General: appearance normal, both eyes and all related structures EOM: EOMs intact bilaterally Neck: Neck: Yes normal visual inspection and Yes no meningeal signs Resp: Effort & Inspection: normal respiratory effort and no respiratory distress Auscultation: clear to auscultation bilaterally Cardio: Rate: regular rate Heart sounds: S1 normal heart sound present and S2 normal heart sound present GI: Inspection: Yes normal to inspection Palpation (GI): Soft to palpation, nontender, no guarding and not rigid : Male General Exam: Yes normal external exam Penis: normal penis, circumcised, not erythematous, no swelling and no ulcerations Meatus: meatus normal and No Blood at meatus present Scrotum: scrotum normal and no ulcerations Testes: Testes normal and no testicular swelling Skin: Rashes: no rashes Wounds: no wounds Neuro: General: patient oriented x3, tone normal and no meningeal signs Gait exam (Neuro): Normal gait present Extrem: General: Yes normal to inspection Course Course Course Narrative: UA negative CT/NG pending, patient would like to refrain from empiric treatment in the ED today as recently tested negative. Discussed results and needed close follow-up with Urology in close monitoring at home. He verbalized understanding and feel safe for discharge -[id number]--upon discharge patient inquired about being started on PEP/PrEP. Patient reports and bloody discharge S/P oral intercourse, & this concerned patient about HIV exposure. Patient is high risk has has MSM. Denies known HIV status in partner, or known exposure. discussed need baseline labs/ PCP/ ID follow-up, patient verbalized understanding and would like to be started on PEP -labs unremarkable. Patient given PEP kit in the ED. will also send total of 1 month supply of medications to the pharmacy. Had lengthy discussion with the patient stressing importance of needed close follow-up/hepatic toxicity concerns, and STI monitoring. Patient verbalized understanding and feel safe for discharge home MDM - Male Genitourinary MDM Narrative Medical decision making narrative: 31-year-old male with past medical history of IBS presenting to the ED complaining of seeing blood come from penis s/p ejaculation last night x1. On exam vital signs stable, NAD, nontoxic appearing, abdomen soft/nontender, exam WNL, no appreciable blood/lesions or cuts. Rule out UTI vs STI (although of lower concern with recent negative testing). Lower concern for renal stone/pyelo Plan: UA, STI testing, urology follow-up Differential Diagnosis Differential diagnosis: Likely urinary tract infection and urethritis Medical Records Attestation: I reviewed the patient's medical records. Lab Data Attestation: I reviewed the patient's lab results. Result diagrams: 07/28/21 21:14 07/28/21 21:14 Labs: Lab Results 07/28/21 07/28/21 07/28/21 Range/Units 19:11 21:14 21:14 WBC 5.1 (4.8-10.8) X10*3/uL RBC 5.34 (4.60-5.80) X10*6/uL Hgb 15.3 (14.0-18.0) g/dl Hct 42.6 (42.0-52.0) % MCV 79.8 L (80.0-98.0) fL MCH 28.7 (27.0-33.0) pg MCHC 35.9 (31.0-36.0) g/dl RDW 13.7 (11.0-16.0) % Plt Count 268 (160-400) X10*3/uL MPV 9.5 (9.4-12.4) fL Immature Gran % (Auto) 0.2 (0.0-0.4) % Neut % (Auto) 41.1 L (45-73) % Lymph % (Auto) 46.8 H (20-40) % [place] % (Auto) 9.2 (2-11) % Eos % (Auto) 2.3 (0-4) % Baso % (Auto) 0.4 (0-2) % Lymph # (Auto) 2.4 (1.2-4.9) X10*3/uL [place] # (Auto) 0.5 (0.1-1.2) X10*3/uL Eos # (Auto) 0.1 (0.0-0.4) X10*3/uL Baso # (Auto) 0.0 (0.0-0.2) X10*3/uL Abs Immat Gran (auto) 0.01 (0.00-0.03) X10*3/uL Absolute Neuts (auto) 2.1 (2.0-8.3) x10*3/uL Absolute Nucleated RBC 0.000 (0.0-0.012) X10*3/uL Nucleated RBC % (auto) 0.0 (0.0-0.2) /100WBC Sodium 135 (135-145) mmol/L Potassium 4.2 (3.3-5.1) mmol/L Chloride 104 (96-108) mmol/L Carbon Dioxide 26 (22-29) mmol/L Anion Gap 9 L (12-20) BUN 9 (9-16) mg/dL Creatinine 1.13 (0.5-1.4) mg/dL Estim Creat Clear Calc 111.6 Estimated GFR > 60 Random Glucose 88 (60-115) mg/dL Calcium 9.6 (8.4-10.2) mg/dL Total Bilirubin 0.5 (0.0-1.0) mg/dL Direct Bilirubin 0.2 (0.0-0.5) mg/dL AST 13 D (5-37) U/L ALT 21 (0-40) U/L Alkaline Phosphatase 60 (39-117) U/L Total Protein 7.4 (6.5-8.0) g/dL Albumin 4.4 (3.5-5.0) g/dL Lipase 18 (8-78) U/L Urine Color YELLOW Urine Appearance CLEAR Urine pH 6.0 (5.0-8.0) Ur Specific [place] 1.010 (1.005-1.025) Urine Protein NEG (NEG-TRACE) MG/DL Urine Glucose (UA) NEG (NEG) MG/DL Urine Ketones NEG (NEG) MG/DL Urine Blood NEG (NEG) Urine Nitrite NEG (NEG) Ur Leukocyte Esterase NEG (NEG) Discharge Plan Discharge Clinical Impression: Hemospermia Patient Disposition: Home, Self-Care Instructions: HIV Transmission (ED), Postexposure Prophylaxis (ED) Additional Instructions: Your urine is not infected. We sent testing for gonorrhea and Chlamydia, these results should be back in 48 hours, refrain from any sexual contact until you know the results of her studies. YOU NEED TO FOLLOW-UP WITH UROLOGY Your blood work was unremarkable. HIV, gonorrhea, chlamydia, and hepatitis C studies are pending at this time. You were given a starter kit for PEP. YOU NEED TO HAVE CLOSE FOLLOW-UP WITH [facility]/YOUR PCP OR INFECTIOUS DISEASE Monitor symptoms closely at home, if they recur/persist, he developed pain, abdominal pain, back pain, or unable to urinate return to the ED immediately The anti-retroviral medications can cause a lot of GI upset, nausea, vomiting, diarrhea Prescriptions: New emtricitabine-tenofovir (TDF) [Truvada] 200-300 mg tablet 1 tab PO DAILY Qty: 30 0RF raltegravir 400 mg tablet 400 mg PO BID 30 Days Qty: 60 0RF No Action polyethylene glycol 3350 [Miralax] 17 gram powder in packet 17 g PO BID Qty: 30 0RF azithromycin 250 mg tablet See Rx Instructions .ROUTE .COMPLEX Qty: 6 0RF Rx Instructions: take 500 mg today (day 1), then 250 mg for 4 days (days 2-5) Referrals: Monico Durand MD [Physician] - 1 week Diana Singh MD [Physician] -
--- NOTE | 2021-07-28 20:33 | PC.NURSE ---
WENT TO D/C PATIENT. PT STATES HAD WAS RECEIVING ORAL SEX AND CONCERNED ABOUT HIV. WANTS TO TALK WITH PROVIDER ABOUT PEP.
[2021-07-28 21:19] LABS: MANUAL DIFF FLAG NO
[2021-07-28 21:21] LABS: Basophils Percent Auto 0.4 % (0-2); Eosinophils Absolute Auto 0.1 X10*3/uL (0.0-0.4); Eosinophils Percent Auto 2.3 % (0-4); Hematocrit 42.6 % (42.0-52.0); Hemoglobin 15.3 g/dl (14.0-18.0); Imm Gran Abs Auto 0.01 X10*3/uL (0.00-0.03); Imm Gran Pct Auto 0.2 % (0.0-0.4); Lymphocytes Absolute Auto 2.4 X10*3/uL (1.2-4.9); Lymphocytes Percent Auto 46.8 % (20-40); Mean Corpuscular HGB Conc 35.9 g/dl (31.0-36.0); Mean Corpuscular Hemoglobin 28.7 pg (27.0-33.0); Mean Corpuscular Volume 79.8 fL (80.0-98.0); Mean Platelet Volume 9.5 fL (9.4-12.4); Monocytes Absolute Auto 0.5 X10*3/uL (0.1-1.2); Monocytes Percent Auto 9.2 % (2-11); Neutrophils Absolute Auto 2.1 x10*3/uL (2.0-8.3); Neutrophils Percent Auto 41.1 % (45-73); Platelet Count 268 X10*3/uL (160-400); Red Blood Count 5.34 X10*6/uL (4.60-5.80); Red Cell Distribution Width 13.7 % (11.0-16.0); White Blood Count 5.1 X10*3/uL (4.8-10.8)
[2021-07-28 21:39] LABS: Alanine Aminotransferase 21 U/L (0-40); Albumin Level 4.4 g/dL (3.5-5.0); Alkaline Phosphatase 60 U/L (39-117); Anion Gap 9 (12-20); Aspartate Amino Transferase 13 U/L (5-37); Bilirubin Direct 0.2 mg/dL (0.0-0.5); Bilirubin Total 0.5 mg/dL (0.0-1.0); Blood Urea Nitrogen 9 mg/dL (9-16); Calcium 9.6 mg/dL (8.4-10.2); Carbon Dioxide 26 mmol/L (22-29); Chloride 104 mmol/L (96-108); Creatinine Clr Calc Pharmacy 111.6; Estimated Glomerular Filt Rate > 60; Glucose Random 88 mg/dL (60-115); Lipase 18 U/L (8-78); Potassium 4.2 mmol/L (3.3-5.1); Sodium 135 mmol/L (135-145); Total Protein 7.4 g/dL (6.5-8.0)
[2021-07-28] MEDS: Post Exposure Medication Kit 1 KIT PO (22:45)
[2021-07-29 02:25] LABS: CT PCR NOT DETECTED (Not Detect.); NG PCR NOT DETECTED (Not Detect.)
[2021-07-29 05:34] LABS: HIV AB/AG Nonreactive (Nonreactive); HIV Num 1 0.07 S/CO (0.00-0.99)
[2021-07-29 12:18] LABS: ~HepC Num1 0.12 S/CO (0.00-0.79); ~Hepatitis C Antibody Nonreactive (Nonreactive)
== END 2021-07-28 22:49 | disposition home or self-care (01) ==
PROVIDERS: Physician Assistant; Emergency Provider Internal Medicine
DX: R36.1 Hematospermia (principal); N48.89 Other specified disorders of penis; R36.9 Urethral discharge, unspecified; Z79.899 Other long term (current) drug therapy
CPT/HCPCS: 36415; 80048; 80076; 81003; 83690; 85025; 86803; 87389; 87491; 87591; 99283; 99284

== ENCOUNTER 2022-11-26 17:48 | Emergency (ER) | payer OTHER, SELFPAY ==
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
[2022-11-26 18:01] VITALS: BP 97/79; PULSE 68; RESP 18; TEMP 36.8; O2SAT 96; BMI 27.1
--- NOTE | 2022-11-26 22:15 | PC.NURSE ---
pt awaiting provider eval- charge nurse aware
[2022-11-26 22:51] LABS: MANUAL DIFF FLAG NO
[2022-11-26 22:54] LABS: Basophils Percent Auto 0.6 % (0-2); Eosinophils Absolute Auto 0.3 X10*3/uL (0.0-0.4); Eosinophils Percent Auto 4.7 % (0-4); Hematocrit 43.2 % (42.0-52.0); Hemoglobin 15.5 g/dl (14.0-18.0); Imm Gran Abs Auto 0.01 X10*3/uL (0.00-0.03); Imm Gran Pct Auto 0.2 % (0.0-0.4); Lymphocytes Percent Auto 45.5 % (20-40); Mean Corpuscular HGB Conc 35.9 g/dl (31.0-36.0); Mean Corpuscular Hemoglobin 28.4 pg (27.0-33.0); Mean Corpuscular Volume 79.3 fL (80.0-98.0); Mean Platelet Volume 9.4 fL (9.4-12.4); Monocytes Absolute Auto 0.7 X10*3/uL (0.1-1.2); Monocytes Percent Auto 9.8 % (2-11); Neutrophils Absolute Auto 2.6 x10*3/uL (2.0-8.3); Neutrophils Percent Auto 39.2 % (45-73); Platelet Count 293 X10*3/uL (160-400); Red Blood Count 5.45 X10*6/uL (4.60-5.80); Red Cell Distribution Width 13.8 % (11.0-16.0); White Blood Count 6.6 X10*3/uL (4.8-10.8)
[2022-11-26] MEDS: Post Exposure Medication Kit 1 KIT PO (23:04)
--- NOTE | 2022-11-26 23:05 | PC.NURSE ---
pt provided with PEP kit
[2022-11-26 23:12] LABS: Alanine Aminotransferase 24 U/L (0-40); Albumin Level 4.5 g/dL (3.5-5.0); Alkaline Phosphatase 65 U/L (39-117); Anion Gap 12 (12-20); Aspartate Amino Transferase 18 U/L (5-37); Bilirubin Total 0.3 mg/dL (0.0-1.0); Blood Urea Nitrogen 19 mg/dL (9-16); Carbon Dioxide 23 mmol/L (22-29); Chloride 105 mmol/L (96-108); Creatinine Clr Calc Pharmacy 93.7; Estimated Glomerular Filt Rate > 60; Glucose Random 93 mg/dL (60-115); Lipase 25 U/L (8-78); Potassium 3.8 mmol/L (3.3-5.1); Sodium 136 mmol/L (135-145); Total Protein 7.9 g/dL (6.5-8.0)
[2022-11-27 05:44] LABS: CT PCR NOT DETECTED (Not Detect.); NG PCR NOT DETECTED (Not Detect.)
[2022-11-28 04:02] LABS: HBS Num1 5.01 mIU/mL (0-7.99); HBc Num1 0.06 S/CO (0.00-0.79); HBsAGNum1 0.32 S/CO (0.00-0.99); HIV AB/AG Nonreactive (Nonreactive); HIV Num 1 0.05 S/CO (0.00-0.99); Hepatitis A Antibody IgM 0.18 Index (0-0.79); Hepatitis B Core Antibody Nonreactive (Nonreactive); Hepatitis B Surface Antigen Negative (Negative); ~HepC Num1 0.08 S/CO (0.00-0.79); ~Hepatitis A Antibody IgM Nonreactive (Nonreactive); ~Hepatitis B Surface Antibody NONREACTIVE (Nonreactive); ~Hepatitis C Antibody Nonreactive (Nonreactive)
== END 2022-11-26 23:48 | disposition home or self-care (01) ==
PROVIDERS: Physician Assistant; Registered Nurse Emergency; Emergency Provider Emergency Medicine Emergency Medical Services
DX: Z20.2 Contact with and (suspected) exposure to infections with a predominantly sexual mode of transmission (principal); Z79.899 Other long term (current) drug therapy
CPT/HCPCS: 0353U; 36415; 80053; 83690; 85025; 86704; 86706; 86709; 86803; 87340; 87389; 99282; 99283

== ENCOUNTER 2023-02-06 23:46 | Emergency (ER) | payer OTHER, SELFPAY ==
[2023-02-06 23:48] VITALS: BP 152/91; PULSE 91; RESP 18; TEMP 36.7; O2SAT 98; BMI 27.8
--- NOTE | 2023-02-07 01:09 | ED_ITS ---
HPI - General Adult General Chief complaint: General Medical Stated complaint: bruising on wrists Time Seen by Provider: 02/07/23 01:09 Source: patient Mode of arrival: ambulatory Limitations: no limitations History of Present Illness HPI narrative: Patient is a 33 year old assigned male at with no reported medical history presenting to the emergency department today with bilateral wrist bruising. Patient states that last night he was doing a lot of vogue type dancing and now he has noticed bilateral bruising to his wrists. Patient denies any dizziness, lightheadedness, abdominal pain, nausea, vomiting, fever, chills, blurry vision, double vision, loss of vision, chest pain, difficulty breathing, shortness of breath, back pain, night sweats, pain with urination, increased urinary frequency, increased urinary urgency, blood in his urine or stool, syncope or a near syncopal episode, recent trauma or falls, bowel incontinence, bladder incontinence, bowel retention, bladder retention, or any other complaints at this time. Onset (ago): day(s) (1) Location: left, right and upper extremity Radiation: non-radiation Severity: mild Relieving factors: none Exacerbating factors: none Associated symptoms: denies other symptoms Treatments prior to arrival: none Related Data Previous Rx's Medication Instructions Recorded polyethylene glycol 3350 17 gram 17 g PO BID #30 ea 09/28/20 oral powder packet (Miralax) azithromycin 250 mg tablet See Rx Instructions PO .COMPLEX #6 11/21/20 tabs emtricitabine 200 mg-tenofovir 1 tab PO DAILY #30 tabs 07/28/21 disoproxil fumarate 300 mg tablet (Truvada) raltegravir 400 mg tablet 400 mg PO BID 30 days #60 tabs 07/28/21 emtricitabine 200 mg-tenofovir 1 tab PO DAILY #24 tabs 11/26/22 disoproxil fumarate 300 mg tablet (Truvada) raltegravir 400 mg tablet 400 mg PO BID #52 tabs 11/26/22 (Isentre) Allergies Allergy/AdvReac Type Severity Reaction Status Date / Time dog dander [dogs] Allergy Runny Nose Verified 11/26/22 18:04 Review of Systems 2 Constitutional: Constitutional: Reports no additional constitutional complaints, Denies chills, Denies fever(s) and Denies night sweats Eyes: Eyes: Reports no additional eye complaints, Denies blurry vision, Denies change in vision, Denies diplopia, Denies eye discharge, Denies loss of vision and Denies eye pain ENT: Denies dizziness Cardiovascular: Cardiovascular: Reports no additional cardiovascular complaints, Denies chest pain, Denies lightheadedness, Denies Loss of Consciousness and Denies dyspnea Respiratory: Respiratory: Reports no additional respiratory complaints and Denies dyspnea Gastrointestinal: Gastrointestinal: Reports no additional gastrointestinal complaints, Denies abdominal pain, Denies melena, Denies hematochezia, Denies change in bowel habits and Denies change in stool character Genitourinary: Genitourinary: Reports no additional male genitourinary complaints, Denies hematuria, Denies oliguria, Denies difficulty urinating, Denies dysuria, Denies urinary frequency, Denies urinary hesitancy, Denies urinary incontinence and Denies urinary urgency Musculoskeletal: Musculoskeletal: Reports no additional musculoskeletal complaints, Denies numbness and Denies tingling Comments: bilateral wrist bruising Neurologic: Denies dizziness, Denies loss of vision, Denies numbness and Denies tingling Psychiatric: Psychiatric: Reports no additional psychiatric complaints Endocrine: Endocrine: Reports no additional endocrine complaints Hematologic/Lymphatic: Hematologic/Lymphatic: Reports no additional hematologic/lymphatic complaints Allergic/Immunologic: Allergic/Immunologic: Reports no additional allergic/immunologic complaints PMFSH Past Medical History Attestation statement: The following information was validated with the patient. Source: old records reviewed and nursing notes reviewed Onset Date is defined in the Problem List Problems that require an onset date and time if occurred within 24 hrs of arrival to the ED Aortic Dissection and Rupture; Neurologic impairment; Cardiopulmonary Arrest; Endotracheal Intubation; Insertion or Replacement of Mechanical Circulatory Assist Device Medical History IBS (irritable bowel syndrome) Social History Social History Smoked in Last 30 Days: No Use of substances other than those prescribed or required for medical reasons: No Advance Directives: No Advance Directives Information Provided: No Physical Exam ED Vital Signs: Vital Signs - 24 hr 02/06/23 23:48 Temperature 98.1 F Pulse Rate 91 Respiratory Rate 18 Blood Pressure 152/91 H Pulse Oximetry 98 Oxygen Delivery Method Room Air BMI result Body Mass Index 27.8 Const General: cooperative, no acute distress, alert and awake Nutritional Appearance: well nourished Orientation/consciousness: patient oriented x3 Limitations: no limitations HENMT Head: Yes normal to inspection and Yes atraumatic Ears: hearing grossly normal bilaterally and external ears normal General nose exam: Normal external nose present, no nasal discharge noted and no epistaxis Face and sinus: Yes normal facial exam, No abrasion and No laceration Mouth: Normal oral and palatal mucosa present, no drooling and no muffled voice Eyes General: appearance normal, both eyes and all related structures Periorbital: periorbital findings normal Eyelids: Yes eyelids normal Conjunctivae: conjunctivae normal Pupils: Equal, round and reactive pupils present EOM: EOMs intact bilaterally Neck Neck: Yes normal visual inspection, Yes full ROM and Yes no lymphadenopathy Chest Chest palpation & inspection: normal inspection of the chest Resp Effort & Inspection: normal respiratory effort and able to speak in complete sentences GI Inspection: Yes normal to inspection Neuro General: patient oriented x3 and moves all extremities Cranial nerves: Yes Equal, round and reactive pupils present Cognition (Neuro): normal cognition Motor exam (neuro): 5/5 motor strength present throughout Sensory Exam: Normal double simultaneous stimulation for sensation Coordination: [id number] test normal Extrem Other: very minimal bruising appreciated to the bilateral wrists General: Yes full ROM and Yes capillary refill normal Psych Appearance: grossly normal Mental Status: mental status grossly normal Affect: normal affect Attitude: cooperative Thought process: Normal thought process present Thought content: Normal thought content present Insight: Good insight present (Psych) Medical Decision Making Medical Decision Making MDM Narrative: Patient is a 33 year old assigned male at with no reported medical history presenting to the emergency department today with bilateral wrist bruising. Patient's physical exam showed minimal bruising to the bilateral wrists. Patient's blood work was unremarkable. I explained my physical exam findings as well as all test results to the patient. I answered all questions asked by the patient. I stressed the importance of the patient taking his medication as prescribed. I stressed the importance of the patient following up with his primary care provider. I stressed the importance of the patient returning to the emergency department immediately if his symptoms were to worsen or if he were to develop any dizziness, shortness of breath, difficulty breathing, chest pain, blurry vision, loss of vision, nausea, vomiting, abdominal pain, fever, chills, back pain, or any other complaints. Patient verbalized agreement and understanding with this treatment plan and discharge. Differential Diagnosis Differential Diagnoses: The differential diagnosis associated with the presentation includes Bilateral wrist bruising Contusion Admission/Observation Consideration of admission/observation: Escalation of care including admission/observation considered Patient would have been admitted to the hospital had his work up had any findings where hospital admission was appropriate and his clinical presentation warranted hospital admission. Lab Data MDM Lab Attestation statement: I reviewed the patient's lab results. My interpretation of these studies and their corresponding values is that they are grossly normal. 02/07/23 01:35 02/07/23 01:35 Labs: Lab Results 02/07/23 Range/Units 01:35 WBC 5.8 (4.8-10.8) X10*3/uL RBC 5.05 (4.60-5.80) X10*6/uL Hgb 14.6 (14.0-18.0) g/dl Hct 40.2 L (42.0-52.0) % MCV 79.6 L (80.0-98.0) fL MCH 28.9 (27.0-33.0) pg MCHC 36.3 H (31.0-36.0) g/dl RDW 13.1 (11.0-16.0) % Plt Count 264 (160-400) X10*3/uL MPV 9.6 (9.4-12.4) fL Immature Gran % (Auto) 0.2 (0.0-0.4) % Neut % (Auto) 39.1 L (45-73) % Lymph % (Auto) 41.1 H (20-40) % [place] % (Auto) 14.8 H (2-11) % Eos % (Auto) 4.3 H (0-4) % Baso % (Auto) 0.5 (0-2) % Lymph # (Auto) 2.4 (1.2-4.9) X10*3/uL [place] # (Auto) 0.9 (0.1-1.2) X10*3/uL Eos # (Auto) 0.3 (0.0-0.4) X10*3/uL Baso # (Auto) 0.0 (0.0-0.2) X10*3/uL Abs Immat Gran (auto) 0.01 (0.00-0.03) X10*3/uL Absolute Neuts (auto) 2.3 (2.0-8.3) x10*3/uL Absolute Nucleated RBC 0.000 (0.0-0.012) X10*3/uL Nucleated RBC % (auto) 0.0 (0.0-0.2) /100WBC ESR 2 (0-15) MM/HR PT 11.8 (11.1-13.3) SEC INR 1.0 (0.9-1.1) APTT 30.2 (26.0-36.4) SEC Sodium 141 (135-145) mmol/L Potassium 3.6 (3.3-5.1) mmol/L Chloride 108 (96-108) mmol/L Carbon Dioxide 23 (22-29) mmol/L Anion Gap 14 (12-20) BUN 12 (9-16) mg/dL Creatinine 1.11 (0.5-1.4) mg/dL Estim Creat Clear Calc 107.9 Estimated GFR > 60 Random Glucose 92 (60-115) mg/dL Calcium 9.0 D (8.4-10.2) mg/dL Magnesium 2.1 (1.6-2.6) mg/dL Total Bilirubin 0.2 (0.0-1.0) mg/dL AST 22 (5-37) U/L ALT 26 (0-40) U/L Alkaline Phosphatase 63 (39-117) U/L C-Reactive Protein < 0.10 (< or = 0.50) mg/dL Total Protein 7.0 (6.5-8.0) g/dL Albumin 4.1 (3.5-5.0) g/dL Discharge Plan Discharge Clinical Impression: Contusion Patient Disposition: Home, Self-Care Instructions: Contusion in Adults (ED) Additional Instructions: Follow up with your primary care provider. Return to the emergency department immediately if your symptoms worsen or if you develop any dizziness, shortness of breath, difficulty breathing, chest pain, blurry vision, loss of vision, nausea, vomiting, abdominal pain, fever, chills, back pain, or any other complaints. Prescriptions: No Action polyethylene glycol 3350 [Miralax] 17 gram powder in packet 17 g PO BID Qty: 30 0RF azithromycin 250 mg tablet See Rx Instructions .ROUTE .COMPLEX Qty: 6 0RF Rx Instructions: take 500 mg today (day 1), then 250 mg for 4 days (days 2-5) emtricitabine-tenofovir (TDF) [Truvada] 200-300 mg tablet 1 tab PO DAILY Qty: 30 0RF raltegravir 400 mg tablet 400 mg PO BID 30 Days Qty: 60 0RF emtricitabine-tenofovir (TDF) [Truvada] 200-300 mg tablet 1 tab PO DAILY Qty: 24 0RF Isentress 400 mg tablet 400 mg PO BID Qty: 52 0RF Referrals: [facility] Family [facility] [Provider Group] (Call to establish and follow up with a primary care provider. If you already have a primary care provider, please follow up with them.) [facility] Primary Care, [facility] [Provider Group] (Call to establish and follow up with a primary care provider. If you already have a primary care provider, please follow up with them.) [facility] Primary Care,[facility] [Provider Group] (Call to establish and follow up with a primary care provider. If you already have a primary care provider, please follow up with them.) Stand Alone Forms: Work/School Release Interventions: ED Discharge Assessment Last Done: 02/07/23 02:25 Discharge Date/Time: 02/07/23 02:26 Print Language: Setswana
[2023-02-07 01:41] LABS: Basophils Percent Auto 0.5 % (0-2); Eosinophils Absolute Auto 0.3 X10*3/uL (0.0-0.4); Eosinophils Percent Auto 4.3 % (0-4); Hematocrit 40.2 % (42.0-52.0); Hemoglobin 14.6 g/dl (14.0-18.0); Imm Gran Abs Auto 0.01 X10*3/uL (0.00-0.03); Imm Gran Pct Auto 0.2 % (0.0-0.4); Lymphocytes Absolute Auto 2.4 X10*3/uL (1.2-4.9); Lymphocytes Percent Auto 41.1 % (20-40); MANUAL DIFF FLAG NO; Mean Corpuscular HGB Conc 36.3 g/dl (31.0-36.0); Mean Corpuscular Hemoglobin 28.9 pg (27.0-33.0); Mean Corpuscular Volume 79.6 fL (80.0-98.0); Mean Platelet Volume 9.6 fL (9.4-12.4); Monocytes Absolute Auto 0.9 X10*3/uL (0.1-1.2); Monocytes Percent Auto 14.8 % (2-11); Neutrophils Absolute Auto 2.3 x10*3/uL (2.0-8.3); Neutrophils Percent Auto 39.1 % (45-73); Platelet Count 264 X10*3/uL (160-400); Red Blood Count 5.05 X10*6/uL (4.60-5.80); Red Cell Distribution Width 13.1 % (11.0-16.0); White Blood Count 5.8 X10*3/uL (4.8-10.8)
[2023-02-07 01:48] LABS: Prothrombin Time 11.8 SEC (11.1-13.3)
[2023-02-07 01:51] LABS: Partial Thromboplastin Time 30.2 SEC (26.0-36.4)
[2023-02-07 01:56] LABS: Alanine Aminotransferase 26 U/L (0-40); Albumin Level 4.1 g/dL (3.5-5.0); Alkaline Phosphatase 63 U/L (39-117); Anion Gap 14 (12-20); Aspartate Amino Transferase 22 U/L (5-37); Bilirubin Total 0.2 mg/dL (0.0-1.0); Blood Urea Nitrogen 12 mg/dL (9-16); C Reactive Protein < 0.10 mg/dL (< or = 0.50); Carbon Dioxide 23 mmol/L (22-29); Chloride 108 mmol/L (96-108); Creatinine Clr Calc Pharmacy 107.9; Estimated Glomerular Filt Rate > 60; Glucose Random 92 mg/dL (60-115); Magnesium 2.1 mg/dL (1.6-2.6); Potassium 3.6 mmol/L (3.3-5.1); Sodium 141 mmol/L (135-145)
[2023-02-07 02:24] VITALS: BP 124/68; PULSE 76; RESP 16; O2SAT 98
[2023-02-07 02:32] LABS: Erythrocyte Sedimentation Rate 2 MM/HR (0-15)
== END 2023-02-07 02:26 | disposition home or self-care (01) ==
PROVIDERS: Physician Assistant Medical; Emergency Provider Internal Medicine
DX: S60.212A Contusion of left wrist, initial encounter (principal); S60.211A Contusion of right wrist, initial encounter; X50.3XXA Overexertion from repetitive movements, initial encounter; Y93.41 Activity, dancing; Y92.9 Unspecified place or not applicable; Y99.9 Unspecified external cause status; Z79.899 Other long term (current) drug therapy
CPT/HCPCS: 36415; 80053; 83735; 85025; 85610; 85652; 85730; 86140; 99283; 99284

== ENCOUNTER 2024-08-20 22:16 | Emergency (ER) | payer OTHER, SELFPAY ==
[2024-08-20 22:21] VITALS: BP 136/76; PULSE 80; RESP 15; TEMP 36.9; O2SAT 100; BMI 27.1
--- NOTE | 2024-08-20 23:50 | ED_ITS ---
HPI - Ear Problem General Chief complaint: Ear Problems Stated complaint: R ear swelling Time Seen by Provider: 08/20/24 23:49 Source: patient Mode of arrival: ambulatory History of Present Illness ED Provider: Myriam Beasley PA-C HPI Narrative: Patient reports to the emergency department tonight for evaluation of right ear swelling and pain. He reports it started off in itching a little bit before that he does wear headphones often in the area but has not over the last day because of the pain. He denies any posterior pain in her spreading into his inner ear. No drainage. His tetanus is up-to-date. He has not tried to treat this. He denies any falls or trauma and no hearing loss tinnitus dizziness or headaches. No associated neck pain and no fevers. He thinks this could have happened to him 1 other time in the past but was not sure what it was or how it was treated. Related Data Previous Rx's ?Medication ?Instructions ?Recorded polyethylene glycol 3350 17 gram 17 g PO BID #30 ea oral powder packet (Miralax) azithromycin 250 mg tablet See Rx Instructions PO .COM PLEX #6 11/21/20 tabs emtricitabine 200 mg-tenofovir 1 tab PO DAILY #30 tabs 07/28/21 disoproxil fumarate 300 mg tablet (Truvada) raltegravir 400 mg tablet 400 mg PO BID 30 days #60 ta bs 07/28/21 emtricitabine 200 mg-tenofovir 1 tab PO DAILY #24 tabs 11/26/22 disoproxil fumarate 300 mg tablet (Truvada) raltegravir 400 mg tablet 400 mg PO BID #52 tabs 11/26 (Isentress) ciprofloxacin HCl 500 mg tablet 500 mg PO BID #14 tabs 08/21/24 (Cipro) levofloxacin 750 mg tablet 750 mg PO DAILY 9 days #9 t abs 08/21/24 tacrolimus 0.03 % topical ointment 1 appl topical BID 14 days #30 08/21/24 grams Allergies Allergy/AdvReac Type Severity Reaction Status Date / Time ciprofloxacin (From Cipro) Allergy Hives Verified 08/21/24 07:14 dog dander (dogs) Allergy Runny Nose Verified 08/21/24 01:48 Review of Systems Review of Systems: Yes all other systems are reviewed and are negative PMFSH Past Medical History Attestation statement: The following information was validated with the patient. Source: old records reviewed and nursing notes reviewed Medical History IBS (irritable bowel syndrome) Social History Social History Advance Directives: Yes Advance Directives Information Provided: Yes Advance Directives on File: No Do you have a plan to hurt others: No Plan Physical Exam Vital Signs: Vital Signs: Last Vital Signs Temp 98.2 F 08/21/24 00:18 Pulse 69 08/21/24 00:18 Resp 16 08/21/24 00:18 BP 121/69 08/21/24 00:18 Pulse Ox 98 08/21/24 00:18 O2 Del Method Room Air 08/21/24 00:18 BMI result Body Mass Index 27.1 General: Appears in no acute distress, appears well nourished body habitus is normal, appears stated age. No septic or ill-appearing. Vitals reviewed normal, PMH/Social and Surgical hx reviewed including allergies and current medications. - reviewed for prior visits here Eyes: EOMI, conjunctiva and sclera clear PERRLA ENMT: moist oral mucosa, no lesions of mouth and nose or face, no lymphade nopathy. normal teeth, uvula is midline no trismus, CN II-VII intact, right pinna with small pustules 1-2mm some serous some white purulent nontender, no erythema, slight edema of pinna without spread to EAM> TM clear, no canal edema, no tragal or mastoid tenderness b/l Neck: trachea midline no pain with neck movement, full ROM, no nuchal rigidity Cardiovascular: peripheral perfusion normal, Regular heart rate Respiratory: no respiratory distress Abdomen: nondistended Extremities: warm and moving without difficulty unless otherwise detailed in physical exam if applicable. Psych: Cooperative Neuro: Alert and oriented. Medical Decision Making Medical Decision Making MDM Narrative: Well appearing 34 y/o M presents to the ED with right sided ear discomfort. H and P as above. Upon arrival to ED is he afebrile with VSS. He does not appear ill or toxic. No trauma. He has localized some pustules with swelling, and tenderness of the ear consistent with perichondritis. No evidence of abscess or systemic involvement. Clinical findings are consistent with soft tissue infection and no imaging is needed at this time. Empirically treated with oral antibiotics targeting common organisms (e.g., Pseudomonas, Staph aureus). No clinical concern for malignant process involving the ear or surrounding structures. Patient advised on proper ear care, signs of worsening infection, and return precautions. Differential Diagnosis Differential Diagnoses: The differential diagnosis associated with the presentation includes atopic dermatitis, HSV, MRSA, contact dermatitis, staph infection, [employer] SERVICE ATTENDANT< RPA, mastoiditis, cellulitis of external ear canal Admission/Observation Consideration of admission/observation: Escalation of care including admission/observation considered Patient would have been admitted to the hospital had his work up had any findings where hospital admission was appropriate and [his/her/their] clinical presentation warranted hospital admission. Tests considered The following testing was considered but not selected: Would have considered CT of mastoid had infection of this or parotid gland or RPA/[employer] R[employer] SERVICE ATTENDANT been of concern Prescription Management I considered prescription management with: Antibiotic Discharge Plan Discharge Clinical Impression: Acute perichondritis of right external ear Patient Disposition: Home, Self-Care Additional Instructions: You were seen in the emergency department tonight for evaluation of pain and swelling of the right ear. On physical exam he did have swelling of the pinna of her ear with small little white vesicles on the backside. There was some serous drainage from them this could represent a dermatitis versus infection of the pericardium DM which is the connective tissue layer of the cartilage. This often time requires prompt treatment to avoid any cartilage necrosis and permanent deformity such as cauliflower ear. This is typically caused by trauma especially piercing sometimes insect bites or friction rubbing or hazel. Typically the bacteria that can cause this from piercings is Pseudomonas or staph aureus from the outside of the skin itself. As it is just that we will give you topical steroid ointment to place on it and I will place him on an oral antibiotic. Avoid any other objects rubbing up against the such your pillowcase or headphones You can alternate Tylenol and Motrin for discomfort. Return for any worsening pain or swelling or discomfort to this area and especially if you develop a fever Prescriptions: New ciprofloxacin HCl [Cipro] 500 mg tablet 500 mg PO BID Qty: 14 0RF tacrolimus 0.03 % ointment 1 appl topical BID 14 Days Qty: 30 0RF Rx Instructions: apply to right ear pinna for itching No Action polyethylene glycol 3350 [Miralax] 17 gram powder in packet 17 g PO BID Qty: 30 0RF azithromycin 250 mg tablet See Rx Instructions .ROUTE .COMPLEX Qty: 6 0RF Rx Instructions: take 500 mg today (day 1), then 250 mg for 4 days (days 2-5) emtricitabine-tenofovir (TDF) [Truvada] 200-300 mg tablet 1 tab PO DAILY Qty: 30 0RF raltegravir 400 mg tablet 400 mg PO BID 30 Days Qty: 60 0RF emtricitabine-tenofovir (TDF) [Truvada] 200-300 mg tablet 1 tab PO DAILY Qty: 24 0RF Isentress 400 mg tablet 400 mg PO BID Qty: 52 0RF levofloxacin 750 mg tablet 750 mg PO DAILY 9 Days Qty: 9 0RF Referrals: Physician,Unknown J [Primary Care Provider, Medical] - 3 days Referral Note: recheck right ear Interventions: ED Discharge Assessment Last Done: 08/21/24 00:18 Discharge Date/Time: 08/21/24 00:22 Print Language: Cook Islander
[2024-08-21 00:18] VITALS: BP 121/69; PULSE 69; RESP 16; TEMP 36.8; O2SAT 98
== END 2024-08-21 00:22 | disposition home or self-care (01) ==
PROVIDERS: Emergency Provider Emergency Medicine
DX: H61.011 Acute perichondritis of right external ear (principal); H92.01 Otalgia, right ear
CPT/HCPCS: 99282; 99283

== ENCOUNTER 2024-08-21 01:44 | Emergency (ER) | payer OTHER, SELFPAY ==
[2024-08-21 01:46] VITALS: BP 151/78; PULSE 108; RESP 20; TEMP 36.8; O2SAT 98; BMI 27.9
[2024-08-21 02:17] VITALS: BP 134/73; PULSE 84; RESP 18; TEMP 36.5; O2SAT 99
[2024-08-21 06:07] VITALS: BP 122/70; PULSE 67; RESP 14; TEMP 36.5; O2SAT 99
--- NOTE | 2024-08-21 06:15 | ED_ITS ---
HPI - Allergic Reaction General Chief complaint: Allergic Reaction Stated complaint: allergic reaction Time Seen by Provider: 08/21/24 06:15 Source: patient Mode of arrival: ambulatory Limitations: no limitations History of Present Illness ED Provider: DR. Stevens [facility] narrative: Patient developed ulceration over the helix of his right ear, he has been wearing occlusive head phones and it was likely rubbing, was seen here started on Cipro, when he took Cipro he started developing throat itching and a rash, rib presented for evaluation. Related Data Previous Rx's ?Medication ?Instructions ?Recorded polyethylene glycol 3350 17 gram 17 g PO BID #30 ea oral powder packet (Miralax) azithromycin 250 mg tablet See Rx Instructions PO .COM PLEX #6 11/21/20 tabs emtricitabine 200 mg-tenofovir 1 tab PO DAILY #30 tabs 07/28/21 disoproxil fumarate 300 mg tablet (Truvada) raltegravir 400 mg tablet 400 mg PO BID 30 days #60 ta bs 07/28/21 emtricitabine 200 mg-tenofovir 1 tab PO DAILY #24 tabs 11/26/22 disoproxil fumarate 300 mg tablet (Truvada) raltegravir 400 mg tablet 400 mg PO BID #52 tabs 11/26 (Isentress) ciprofloxacin HCl 500 mg tablet 500 mg PO BID #14 tabs 08/21/24 (Cipro) levofloxacin 750 mg tablet 750 mg PO DAILY 9 days #9 t abs 08/21/24 tacrolimus 0.03 % topical ointment 1 appl topical BID 14 days #30 08/21/24 grams Allergies Allergy/AdvReac Type Severity Reaction Status Date / Time ciprofloxacin (From Cipro) Allergy Hives Verified 08/21/24 07:14 dog dander (dogs) Allergy Runny Nose Verified 08/21/24 01:48 Review of Systems Review of Systems: Yes all other systems are reviewed and are negative Constitutional: Constitutional: Reports as per [facility] Past Medical History Medical History IBS (irritable bowel syndrome) Social History Social History Advance Directives: Yes Advance Directives Information Provided: Yes Advance Directives on File: No Do you have a plan to hurt others: No Plan Physical Exam ED Vital Signs: Vital Signs - 24 hr 08/21/24 01:46 08/21/24 02:17 08/21/24 06:07 Temperature 98.2 F 97.7 F 97.7 F Pulse Rate 108 H 84 67 Respiratory Rate 20 18 14 Blood Pressure 151/78 H 134/73 122/70 Pulse Oximetry 98 99 99 Oxygen Delivery Method Room Air Room Air Room Air BMI result Body Mass Index 27.9 Const Other: There was no tenderness along the mastoid External ear without any drainage Slight swelling and small superficial laceration over the helix Cranial nerves 2-12 intact no facial edema, no swelling anteriorly Course Reevaluation(s) Reevaluation #1: I, Dr. Kelly have take over the care of this patient, I reviewed pertinent blood work and imaging, re-evaluated the patient when appropriate. Patient received levofloxacin approximately 15 minutes ago and has not had a reaction, I did discuss with him to not wear any head phones that would cover the ear and he needs ENT follow up, there was no evidence for mastoiditis, and ENT needs to be involved to make sure that this is improving and does not evolve into the perichondritis Time: 07:58 Medications Administered Discontinued Medications Generic Name Dose Route Start Last Admin Trade Name Freq PRN Reason Stop Dose Admin Levofloxacin 750 mg 08/21/24 06:47 08/21/24 06:59 Levofloxacin 750 Mg Tablet PO 08/21/24 06:48 750 mg ONCE ONE Administration Medical Decision Making Medical Decision Making [facility] Narrative: Patient given levofloxacin, he was monitored to make sure there was no allergic reaction to levofloxacin, and recommend he follow up with ENT providers to make sure the infection does not extend deeper into the cartilage Prescription Management I considered prescription management with: Antibiotic Discharge Plan Discharge Clinical Impression: Acute perichondritis of right external ear Patient Disposition: Home, Self-Care Additional Instructions: First dose of antibiotics given in the ER, you tolerated it well, continue starting tomorrow for the next 9 days, there were number of the ENT physicians in the area, you can call ear nose and throat surgeons at [facility] at [phone] 4 follow up, as discussed keep the ear clean and dry, you can wash the area with soap and water pat dry and do not cover with headphones, the swelling should start improving, if you have significant drainage if the swelling is getting worse come back to the ER for evaluation Prescriptions: New levofloxacin 750 mg tablet 750 mg PO DAILY 9 Days Qty: 9 0RF No Action polyethylene glycol 3350 [Miralax] 17 gram powder in packet 17 g PO BID Qty: 30 0RF azithromycin 250 mg tablet See Rx Instructions .ROUTE .COMPLEX Qty: 6 0RF Rx Instructions: take 500 mg today (day 1), then 250 mg for 4 days (days 2-5) emtricitabine-tenofovir (TDF) [Truvada] 200-300 mg tablet 1 tab PO DAILY Qty: 30 0RF raltegravir 400 mg tablet 400 mg PO BID 30 Days Qty: 60 0RF emtricitabine-tenofovir (TDF) [Truvada] 200-300 mg tablet 1 tab PO DAILY Qty: 24 0RF Isentress 400 mg tablet 400 mg PO BID Qty: 52 0RF ciprofloxacin HCl [Cipro] 500 mg tablet 500 mg PO BID Qty: 14 0RF tacrolimus 0.03 % ointment 1 appl topical BID 14 Days Qty: 30 0RF Rx Instructions: apply to right ear pinna for itching Print Language: Serbian
[2024-08-21 08:14] VITALS: BP 125/61; PULSE 70; RESP 16; TEMP 36.7; O2SAT 98
[2024-08-21 08:18] VITALS: BP 125/61; PULSE 70; RESP 16; TEMP 36.7; O2SAT 98
== END 2024-08-21 08:20 | disposition home or self-care (01) ==
PROVIDERS: Emergency Provider Emergency Medicine
DX: H61.011 Acute perichondritis of right external ear (principal); L27.0 Generalized skin eruption due to drugs and medicaments taken internally; T36.8X5A Adverse effect of other systemic antibiotics, initial encounter; Y92.9 Unspecified place or not applicable; H92.01 Otalgia, right ear
CPT/HCPCS: 99283